=== PATIENT | female | born 1940 | race Caucasian/White ===

== ENCOUNTER 2017-01-14 10:25 | Outpatient (CLI) | payer BC, MEDICARE ==
--- NOTE | 2017-01-14 12:19 | RAD ---
CHEST PA AND LATERAL: HISTORY: A 76-year-old female with a history of dyspnea. COMPARISON: 01/17/2015 FINDINGS: Heart size is normal. Lungs are clear. No pneumonia, edema, or pleural effusion. Atherosclerosis of the aorta. Mild stable biapical pleural thickening. IMPRESSION: 1. Mild stable chronic changes. 2. Atherosclerosis of the aorta with some ectasia. 3. No acute intrathoracic disease. POS: [facility]
== END 2017-01-14 10:26 | disposition home or self-care (01) ==
LOC: RAD 10:25
PROVIDERS: ATTEND Internal Medicine Pulmonary Disease
DX: R06.00 Dyspnea, unspecified (principal); I70.0 Atherosclerosis of aorta; I77.819 Aortic ectasia, unspecified site
CPT/HCPCS: 71020

== ENCOUNTER 2017-04-21 17:30 | Emergency (ER) | payer MEDICARE, BC | END 2017-04-21 20:17 | disposition home or self-care (01) | LOC: ERS 17:30 | DX: J06.9 Acute upper respiratory infection, unspecified (principal); J30.9 Allergic rhinitis, unspecified; M54.9 Dorsalgia, unspecified; E78.5 Hyperlipidemia, unspecified; I10 Essential (primary) hypertension; F32.9 Major depressive disorder, single episode, unspecified; M79.7 Fibromyalgia; Z79.899 Other long term (current) drug therapy | CPT/HCPCS: 99283 ==

== ENCOUNTER 2017-10-23 11:17 | Outpatient (CLI) | payer MEDICARE, BC | END 2017-10-23 11:18 | disposition home or self-care (01) | LOC: BICRAD 11:17 | PROVIDERS: ATTEND Specialist | DX: M25.561 Pain in right knee (principal); M17.11 Unilateral primary osteoarthritis, right knee ==

== ENCOUNTER 2018-01-29 08:45 | Inpatient (IN) | payer BC, MEDICARE ==
--- NOTE | 2018-01-29 14:24 | HP ---
HISTORY OF PRESENT ILLNESS: The patient is a 77-year-old female, who has long history of progressive degenerative arthritis of the right knee unresponsive to treatement including restriction of activities, antiinflammatory medications, and previous cortisone injections. It is now causing her to have an unsteady gait and fall. PAST MEDICAL HISTORY: The patient has had polio in the recent past. She does have early onset dementia. She has had previous left total knee replacement with good results. She has history of high cholesterol and hypertension. CURRENT MEDICATIONS: Include; 1. Fluoxetine. 2. Hydrochlorothiazide. 3. Simvastatin. 4. . 5. Tramadol. 6. Lyrica. 7. Diclofenac. 8. Namenda. 9. Mirtazapine. 10. Flexeril. 11. Rivastigmine. ALLERGIES: SHE HAS NO KNOWN ALLERGIES. THE PATIENT LIVES WITH HER FAMILY AND IS INDEPENDENT. NO LONGER DRIVES AND USES A WALKER CANE. FAMILY HISTORY: Otherwise, unremarkable. SOCIAL HISTORY: Otherwise, unremarkable. REVIEW OF SYSTEMS: Otherwise, unremarkable. PHYSICAL EXAMINATION: GENERAL: Healthy, elderly female. She appears to be alert. HEENT: Unremarkable. NECK: Supple. CHEST: Clear. HEART: Regular rate and rhythm. ABDOMEN: Soft and nontender. PELVIC: Deferred. RECTAL: Deferred. BREASTS: Deferred. EXTREMITIES: Pertinent findings of the right knee, there is slight puffiness. There is no fusion or effusion or erythema. There is normal alignment. There is tenderness over the medial joint line and the retropatellar area. There is crepitus with range of motion. Range of motion is 0 to 130 degrees. There is no instability. NEUROVASCULAR: Intact. There is right antalgic gait. Straight leg raising is negative. IMAGING DATA: X-rays in the right knee reveals diffuse degenerative changes in all compartments and [id number] collapse at the patellofemoral joint. IMPRESSION: 1. Degenerative arthritis, right knee. 2. Status post left total knee replacement. 3. Early onset dementia. PLAN: Right total knee replacement. The nature of the surgery and length of recovery and potential complications such as infection, loss of motion, incomplete relief, thrombolic phenomenon, neurovascular injury, possible transfusion and need for revision have been discussed in detail with the patient and the family. Job ID: [id number]
[2018-02-02] MEDS ORDERED: Fentanyl 100 MCG/2 ML VIAL ONE ×2 (06:19→06:50)
[2018-02-02] MEDS ORDERED: Midazolam HCl 2 mg/2 ml Vial ONE (06:19)
[2018-02-02] MEDS ORDERED: Lidocaine 1% (PF) 30 ML VIAL ONE (06:19)
[2018-02-02] MEDS ORDERED: CEFAZOLIN 2 GM/50 ML BAG ONE (06:32)
[2018-02-02] MEDS ORDERED: Tranexamic Acid 1,000 MG/10 ML VIAL ONE ×2 (06:32→08:57)
[2018-02-02] MEDS ORDERED: Sodium Chloride 0.9% 100 ML ONE (06:32)
[2018-02-02] MEDS ORDERED: Morphine PF 1 MG/ML SYR ONE (06:54)
[2018-02-02] MEDS ORDERED: Bupivacaine 0.75% W/DEXTROSE 8.25% 2 ML AMP ONE (07:12)
[2018-02-02] MEDS ORDERED: Promethazine HCl 25 MG SUPP PR PRN (07:39)
[2018-02-02] MEDS ORDERED: Promethazine HCl 25 MG/ML VIAL IM PRN (07:39)
[2018-02-02] MEDS ORDERED: Eucerin (Mineral Oil/Petrolatum,White) 30 gm Jar TOP PRN (07:39)
[2018-02-02] MEDS ORDERED: Naloxone HCl 0.4 mg/ml Vial IVP PRN ×2 (07:39)
[2018-02-02] MEDS ORDERED: diphenhydrAMINE 50 MG/ML VIAL IVP PRN (07:39)
[2018-02-02] MEDS ORDERED: Naloxone HCl 0.4 mg/ml Vial IV PRN (07:39)
[2018-02-02] MEDS ORDERED: Ondansetron HCl/PF 4 MG/2 ML Vial IVP PRN (07:39)
[2018-02-02] MEDS ORDERED: Acetaminophen 1,000 MG in Premix Bag 1 BAG IVPB PRN (07:44)
[2018-02-02] MEDS ORDERED: Acetaminophen 500 MG TAB PO PRN (07:44)
[2018-02-02] MEDS ORDERED: Communication Order-Pharmacy FS SCH (07:45)
[2018-02-02] MEDS ORDERED: Bupivacaine HCl 0.5%/Epinephrine 1:200,000/PF 30 ml Vial ONE (08:11)
[2018-02-02] MEDS ORDERED: Lidocaine 1% w/Epinephrine 1:200K 30 ML VIAL ONE (08:11)
[2018-02-02] MEDS ORDERED: Tranexamic Acid 1,000 MG in Sodium Chloride 0.9% 100 ML IVPB SCH ×2 (09:15→10:38)
[2018-02-02] MEDS ORDERED: Ketorolac Tromethamine 30 MG/ML VIAL ONE (09:27)
[2018-02-02 10:09] VITALS: BMI 28.5
--- NOTE | 2018-02-02 10:10 | RAD ---
TWO VIEWS RIGHT KNEE: History: Right knee arthroplasty. FINDINGS: Two views of the right knee shows the patient to be status post right knee arthroplasty without perih ardware lucency with fracture. Air in the soft tissues and joint are from recent surgery. IMPRESSION: Status post right knee arthroplasty without evidence of complication. POS: [facility]
[2018-02-02] MEDS: Ketorolac Tromethamine 30 MG/ML VIAL IVP SCH ×3 (10:37→20:45)
[2018-02-02] MEDS ORDERED: CEFAZOLIN/Water 2 GM/20 ML SYRINGE SLOW IVP SCH (10:38)
[2018-02-02] MEDS ORDERED: Acetaminophen 325 MG TAB PO PRN (10:38)
[2018-02-02] MEDS ORDERED: Ondansetron PF 4 MG/2 ML Vial IVP PRN (10:38)
[2018-02-02] MEDS: Sodium Chloride 0.9% 1,000 ML IV SCH ×2 (13:24→21:08)
[2018-02-02] MEDS: Aspirin 81 mg Enteric Coated Tablet PO SCH ×2 (13:24→21:07)
[2018-02-02] MEDS ORDERED: ePHEDrine/0.9% NaCl/PF SYRINGE 50 mg/10 ml ONE (14:00)
[2018-02-02] MEDS ORDERED: PROPOFOL 200 MG/20 ML VIAL ONE (14:00)
[2018-02-02] MEDS ORDERED: PHENYLEPHRINE-NS 100 MCG/ML 10 ML SYRINGE ONE (14:00)
[2018-02-02] MEDS: CEFAZOLIN 2 GM/50 ML-DEXTROSE 2 GM in Premix Bag 1 BAG IVPB SCH (14:50)
[2018-02-02] MEDS: Ondansetron PF 4 MG/2 ML Vial IVP PRN (15:41)
[2018-02-02] MEDS ORDERED: Vancomycin HCl 1 GM in Premix Bag 1 BAG IVPB SCH (18:00)
[2018-02-02] MEDS: diphenhydrAMINE 25 MG CAP PO PRN (18:55)
[2018-02-02] MEDS: Calcium Citrate 950 MG TAB PO SCH (21:07)
[2018-02-02] MEDS: Pregabalin 50 MG CAP PO SCH (21:07)
[2018-02-02] MEDS: Atorvastatin Calcium 10 MG TAB PO SCH (21:08)
[2018-02-02] MEDS ORDERED: traMADol HCl 50 MG TAB PO PRN (22:00)
[2018-02-02] MEDS ORDERED: Fentanyl 100 MCG/2 ML VIAL SLOW IVP PRN (22:00)
[2018-02-02] MEDS ORDERED: Zolpidem Tartrate 5 MG TAB PO PRN (22:00)
[2018-02-02] MEDS ORDERED: HYDROcodone/Acetaminophen 5/325 mg Tablet PO PRN (22:00)
[2018-02-03] MEDS: Ketorolac Tromethamine 30 MG/ML VIAL IVP SCH ×4 (00:51→20:39)
[2018-02-03] MEDS: CEFAZOLIN 2 GM/50 ML-DEXTROSE 2 GM in Premix Bag 1 BAG IVPB SCH (00:51)
[2018-02-03] MEDS: diphenhydrAMINE 25 MG CAP PO PRN (01:00)
[2018-02-03] MEDS: HYDROcodone/Acetaminophen 5/325 mg Tablet PO PRN ×5 (03:55→21:32)
[2018-02-03] MEDS: Sodium Chloride 0.9% 1,000 ML IV SCH ×2 (05:57→16:50)
--- NOTE | 2018-02-03 05:59 | CON ---
DATE OF CONSULTATION: 02/02/2018 CHIEF COMPLAINT: Status post right total knee replacement. I have been requested to monitor the patient's other multiple medical issues. HISTORY OF PRESENT ILLNESS: The patient is a 77-year-old female, who has been having severe right knee arthritic pain for quite sometime and was cleared for surgical procedure just 2 weeks ago. On the day of dictation, she just finished having right total knee replacement and currently is doing well. Initially, coming out from under the anesthesia, she had nausea and vomiting, and now she is complaining of itching all over, but other than that she is doing quite well. No chest pain. No shortness of breath. Vital signs have remained stable. PAST MEDICAL HISTORY: Significant for early onset dementia, osteoarthritis of the knees, hypertension, dyslipidemia, depression. PAST SURGICAL HISTORY: Patient's other surgery is left total knee replacement. ALLERGIES: SHE HAS NO KNOWN DRUG ALLERGIES. MEDICATIONS: Her medications on admission include; 1. Fluoxetine. 2. Hydrochlorothiazide. 3. Simvastatin. 4. Tramadol. 5. Lyrica. 6. Namenda 10 mg b.i.d. 7. Rivastigmine. 8. Mirtazapine. SOCIAL HISTORY: She is . Does not smoke or drink alcoholic beverages. REVIEW OF SYSTEMS: GENERAL: No fever, cough, malaise. HEENT: No sores in ear, nose, or throat. CHEST: Denies shortness of breath or dyspnea. CARDIOVASCULAR: Denies palpitations or chest pain. ABDOMEN/GI: Denies nausea, vomiting, or diarrhea prior to the surgical procedure, but since anesthesia she has had nausea and vomiting. : Denies blood in urine or stool. SKIN: Has diffuse erythematous rash that is very pruritic. MUSCULOSKELETAL: Status post left knee replacement, doing well, and just had right total knee replacement on the day of consultation, also doing well. NEUROLOGIC: Suffers from significant short-term memory loss and dementia, but is very pleasant. Examination: WD,WN cauc Female,, NAD, Alert HEENT: NC, AT, PERRL, EOMI, TM's/ Nares/Pharynx - clear Neck: Supple -no mass CHEST: CTA HEART: RRR , no murmur Breast/ : deferred ABD: soft , NT, No LSM EXT: right LE in post -op wrap , NT left , UE w/o CCE, Nl ROM SKIN: no acute lesions Neuro: CN intact, sensory intact, MS sig for significant short term memory loss ASSESSMENT: 1. Osteoarthritis of the knees, status post right total knee replacement on the day of consultation. 2. Left total knee replacement in the past. 3. Hypertension. 4. Dyslipidemia. 5. Dementia. PLAN: Will be to monitor patient's medications and serially re-evaluate her if she remains in the hospital, pain management as per Anesthesia, and we will try to avoid any more medication that makes her itch. Job ID: [id number] MTDD
[2018-02-03] MEDS: Rivastigmine 4.6mg/24 Hour PATCH TD SCH (07:19)
[2018-02-03 07:29] LABS: Hemoglobin 11.6 g/dL (12.0-16.0); Mean Corpuscular HGB CONC 33.4 g/dL (32.0-36.0); Mean Corpuscular Hemoglobin 32.9 pg (27.0-31.0); Mean Corpuscular Volume 98.7 fL (78.0-98.0); Mean Platelet Volume 10.9 fL (7.4-10.4); Platelet Count 95 thou/uL (130-400); RBC Distribution Width 12.4 % (11.5-14.5); Red Blood Cell (RBC) Count 3.51 mill/uL (4.20-5.40); White Blood Cell (WBC) Count 7.1 thou/uL (4.8-10.8)
[2018-02-03] MEDS: Ondansetron PF 4 MG/2 ML Vial IVP PRN (07:35)
[2018-02-03] MEDS: Pregabalin 50 MG CAP PO SCH ×2 (07:41→20:45)
[2018-02-03] MEDS: Multivitamin W/ Minerals 1 TAB PO SCH (08:22)
[2018-02-03] MEDS: Calcium Citrate 950 MG TAB PO SCH ×2 (08:22→21:31)
[2018-02-03] MEDS: Cyanocobalamin (Vitamin B-12) 1,000 MCG TAB PO SCH (08:23)
[2018-02-03] MEDS: FLUoxetine HCl 20 MG CAP PO SCH (08:24)
[2018-02-03] MEDS: Ferrous Gluconate 324 MG TAB PO SCH ×2 (08:24→20:45)
[2018-02-03] MEDS: Aspirin 81 mg Enteric Coated Tablet PO SCH ×2 (08:25→20:45)
[2018-02-03] MEDS: Mirtazapine 15 MG TAB PO SCH (08:25)
[2018-02-03] MEDS: Senokot S 8.6-50 MG TAB PO SCH ×2 (08:26→20:45)
[2018-02-03] MEDS ORDERED: Diphenoxylate HCl/Atropine Tablet PO PRN (09:45)
[2018-02-03] MEDS: traMADol HCl 50 MG TAB PO PRN ×2 (11:26→18:25)
[2018-02-03 12:00] LABS: Bilirubin Negative (Negative); Blood, Urine Negative (Negative); Clarity CLEAR (Clear); Glucose, Urine (Dipstick) Negative (Negative); Leukocyte Small (Negative); Nitrite Negative (Negative); Protein, Urine (Dipstick) 30 mg/dL (Neg-Trace); Specific Gravity, Urine 1.029 (1.002-1.036); Urobilinogen 0.2 mg/dL (0.2-1.0); pH, Urine 5.5 (5.0-9.0)
[2018-02-03 12:07] LABS: Bacteria/HPF None Seen HPF (None Seen); Pathc Cast-AUWi Flag 1.45 (0-2.49); Squamous Epithelial 0-3 HPF (0-3)
[2018-02-03 12:14] LABS: Hyaline Casts/LPF 0-3 HYALINE CAST LPF (0-3 Hyaline)
[2018-02-03] MEDS: Atorvastatin Calcium 10 MG TAB PO SCH (20:45)
[2018-02-04] MEDS: Ketorolac Tromethamine 30 MG/ML VIAL IVP SCH ×3 (01:04→15:54)
[2018-02-04] MEDS: Sodium Chloride 0.9% 1,000 ML IV SCH ×2 (02:08→11:30)
[2018-02-04] MEDS: HYDROcodone/Acetaminophen 5/325 mg Tablet PO PRN ×3 (04:55→15:32)
[2018-02-04 06:31] LABS: Cardiac Risk 2.1 (Less than 4.5)
[2018-02-04] MEDS: Senokot S 8.6-50 MG TAB PO SCH (09:25)
[2018-02-04] MEDS: Mirtazapine 15 MG TAB PO SCH (09:25)
[2018-02-04] MEDS: Multivitamin W/ Minerals 1 TAB PO SCH (09:26)
[2018-02-04] MEDS: Cyanocobalamin (Vitamin B-12) 1,000 MCG TAB PO SCH (09:26)
[2018-02-04] MEDS: Aspirin 81 mg Enteric Coated Tablet PO SCH (09:26)
[2018-02-04] MEDS: Pregabalin 50 MG CAP PO SCH (09:27)
[2018-02-04] MEDS: Calcium Citrate 950 MG TAB PO SCH (09:28)
[2018-02-04] MEDS: Ferrous Gluconate 324 MG TAB PO SCH (09:28)
[2018-02-04] MEDS: FLUoxetine HCl 20 MG CAP PO SCH (09:28)
[2018-02-04] MEDS: Rivastigmine 4.6mg/24 Hour PATCH TD SCH (09:48)
[2018-02-04] MEDS ORDERED: Sulfameth/Trimethoprim DS 800-160mg TAB PO SCH ×2 (10:15→21:00)
[2018-02-04 12:02] VITALS: BP 158/73; TEMP 97.4
[2018-02-04] MEDS ORDERED: DICLOFENAC GEL 1% TOP SCH (13:00)
--- NOTE | 2018-02-04 17:13 | OP ---
DATE OF PROCEDURE: 02/02/2018 PREOPERATIVE DIAGNOSIS: End-stage degenerative tricompartmental osteoarthritis, right knee. POSTOPERATIVE DIAGNOSIS: End-stage degenerative tricompartmental osteoarthritis , right knee. PROCEDURE PERFORMED: Posterior cruciate sparing computer-assisted navigated right knee total knee arthroplasty. SURGEON: Vargas Castro MD MALT SPECIFICATIONS CONTROL ASSISTANT: Danie Carlos PA-C ANESTHESIA: Spinal augmented with TIVA and monitored anesthesia care. COMPONENTS USED: [employer] Triathlon size 3 primary cruciate sparing femoral component, cemented primary femoral component with a size 3 primary cemented cruciate sparing tibial component, 9 mm polyethylene fixed bearing insert, and 827 patella button. TOURNIQUET TIME: 66 minutes at 250 mmHg. ESTIMATED BLOOD LOSS: Less than 20. FINDINGS: End-stage severe degenerative tricompartmental disease, kktu-tr-ikyl arthrosis, periarticular osteophyte formation, large serous effusion, and hypertrophic synovium with significant patellofemoral degenerative changes with subcortical excoriation. INPUT: 1 L of LR. OUTPUT: 400 mL of clear yellow urine. DRAINS: None. SPECIMENS: None. COMPLICATION: None. COUNTS: Correct. INDICATIONS FOR SURGERY: Lee is a 77-year-old white female, who has had progressive right knee pain when standing and walking for the last 5 to 7 years. She has failed conservative management and elected to proceed with total knee arthroplasty for definitive treatment of her pain. PROCEDURE IN DETAIL: After informed consent was obtained in the preoperative holding area, the patient was taken to the operative suite where general anesthesia was induced. Once adequate level of general anesthesia was obtained, the patient was positioned and a well-padded tourniquet was placed around the right proximal thigh. The right lower extremity was then prepped and draped in the usual sterile fashion. Prior to exsanguination, a time-out was called and all members of the surgical team agreed upon site, surgeon, and patient. The extremity was then exsanguinated and the tourniquet was raised. A midline longitudinal incision was then made directly over the patella extending 2 fingerbreadths above the superior pole of the patella and 2 fingerbreadths inferior to the inferior patellar pole of the patella. Deeper subcutaneous layers were dissected sharply and local bleeding was controlled with Bovie electrocautery. A quad tendon longitudinal split was then made sharply and a median parapatellar arthrotomy was carried out both sharp and with Bovie electrocautery, carried down to 1 fingerbreadth medial to the tibial tubercle. The knee was then placed into flexion and the patella was everted nicely, and a copious fat pad ectomy was performed, allowing for greater exposure of the tibia. The computer-assisted distal femoral fiducial was then placed and pinned firmly, and the distal femoral cutting guide was pinned firmly into place. The oscillating saw was then used to remove the appropriate amount of bone. The 4-in-1 cutting block was then placed on the distal femur and the oscillating saw was used to remove the appropriate amount of bone off the anterior, posterior, and chamfer cuts. After completion of bone cuts, the anterior cruciate ligament was resected sharply and the posterior cruciate ligament retractor was placed and the tibia was subluxed for better exposure. Partial meniscectomies were carried out, and the tibial computer-assisted fiducial was pinned, and the cutting guide was placed. Oscillating saw was then used to remove the bone, with Hohmann retractors used to take care and protect the collateral ligaments. After the tibial resection was performed, a laminar banking officer was placed in between the freshened bone cuts. The knee placed at 90 degrees and further bilateral meniscectomies were carried out, and the curved osteotome and curettage were used to remove any excess bone spurs in the posterior compartment. The trial femoral component, tibial baseplate were placed with the appropriate polyethylene trial insert with an appropriate polyethylene spacer and patellar button. The knee was taken through full range of motion with flexion and extension from 0 to 90 degrees and patellar broach squarely in the trochlea without any squinting or subluxation noted. The knee was also stable to varus and valgus stressing at 0, 15, 45, and 90 degrees of flexion. The drawer was negative. All trial components were then removed and the keel punch was used to provide the appropriate defect in the tibia with a mallet. The freshened bone cuts were copiously irrigated with pulsatile lavage of about 1.5 L to remove all excess debris. The freshened bone cuts were then dried with suction and lap sponge. The knee was placed in flexion and retractors were placed to provide access to all bone cuts. Tobramycin-impregnated methyl methacrylate cement was then placed on the freshened bone cuts and implants which were malleted firmly into place. Curettage and [place] elevators were used to remove any excess bone cement. The knee was placed into full extension and the patellar button was placed under compression, and the cement was allowed to cure. Once completed, the components were again taken through full range of motion and copious irrigation of the knee was carried out with another liter of normal saline. All components were inspected fully with full range of motion and varus and valgus stressing. There was no laxity noted and full extension was observed clinically. Primary closure was accomplished with #2 interrupted Vicryl stitch of the arthrotomy defect. This was oversewn with a #2 running Quill barbed stitch. The subcutaneous layer was then closed with a running 0 barbed Monocryl stitch and skin closure accomplished with a running subcuticular 3-0 Monocryl barbed Quill stitch and augmented with cement on the skin. Tourniquet was lowered. Good spontaneous return of distal pulses was noted clinically and a sterile dressing was applied to the incision. The procedure was terminated without any complications. The patient was awakened in the operative suite and taken to the recovery room in stable condition. Job ID: [id number] [facility]
== END 2018-02-04 16:28 | disposition home or self-care (01) | DRG 470 ==
LOC: SJJU 02-02 05:26
PROVIDERS: ADMIT Orthopaedic Surgery; ATTEND Orthopaedic Surgery
PROC: 0SRC0J9 Replacement of Right Knee Joint with Synthetic Substitute, Cemented, Open Approach (ICD-10-PCS; principal; 2018-02-02)
DX: M17.11 Unilateral primary osteoarthritis, right knee (principal); F03.90 Unspecified dementia, unspecified severity, without behavioral disturbance, psychotic disturbance, mood disturbance, and anxiety; Z86.12 Personal history of poliomyelitis; E78.5 Hyperlipidemia, unspecified; F32.9 Major depressive disorder, single episode, unspecified; Z79.899 Other long term (current) drug therapy; Z96.652 Presence of left artificial knee joint
CPT/HCPCS: 36415; 80061; 81001; 85027; 87086; C1713; C1776; G8978-GP-CK; G8978-GP-CM; G8979-GP-CI; G8979-GP-CJ; J0670; J1885; J2001; J2250; J2274; J2405; J2704; J3010; J3370; J3490; J7050

== ENCOUNTER 2018-01-29 08:51 | Outpatient (CLI) | payer BC, MEDICARE | END 2018-01-29 08:52 | disposition home or self-care (01) | LOC: LABBT 08:51 | PROVIDERS: ATTEND Orthopaedic Surgery | DX: Z01.818 Encounter for other preprocedural examination (principal); M17.11 Unilateral primary osteoarthritis, right knee | CPT/HCPCS: 86850; 86900; 86901; 87081 ==

== ENCOUNTER 2018-04-09 08:14 | Observation (INO) | payer BC, MEDICARE ==
--- NOTE | 2018-04-09 08:43 | CT ---
CT BRAIN WITHOUT CONTRAST: Date: 04/09/18 HISTORY: Level II stroke. FINDINGS: Comparison made with exam of 02/15/15. Changes of cortical atrophy and chronic small vessel ischemic disease are again seen. No evidence of acute infarct, hemorrhage, midline shift, or abnormal extra-axial fluid collections are noted. The ve ntricular size is stable and the basilar cisterns are patent. The bony calvarium is intact. The visua lized paranasal sinuses and mastoid air cells are well aerated. IMPRESSION: No CT evidence of acute intracranial process. Discussed over the phone with ER physician, Dr. Doug Chavez, at 0839 hours. CODE CR.
[2018-04-09 08:44] LABS: #Eosinphils 0.4 thou/uL (0.0-0.7); #Lymphocytes 0.9 thou/uL (1.20-3.40); #Monocytes 0.7 thou/uL (0.11-0.59); #Neutrophils 5.1 thou/uL (1.40-6.50); %Basophils 0.5 % (0.0-1.0); %Eosinophils 5.9 % (0.0-10.0); %Lymphocytes 12.9 % (21.0-51.0); %Monocytes 9.9 % (0.0-10.0); %Neutrophils 70.7 % (42.0-75.0); Hemoglobin 13.2 g/dL (12.0-16.0); Mean Corpuscular HGB CONC 31.3 g/dL (32.0-36.0); Mean Corpuscular Hemoglobin 30.9 pg (27.0-31.0); Mean Corpuscular Volume 98.8 fL (78.0-98.0); Mean Platelet Volume 10.6 fL (7.4-10.4); Platelet Count 117 thou/uL (130-400); RBC Distribution Width 12.1 % (11.5-14.5); Red Blood Cell (RBC) Count 4.25 mill/uL (4.20-5.40); White Blood Cell (WBC) Count 7.3 thou/uL (4.8-10.8)
[2018-04-09 09:03] LABS: ALT (SGPT) 43 U/L (8-55); AST (SGOT) 37 U/L (5-34); Albumin 4.1 g/dL (3.4-4.8); Alkaline Phosphatase 138 U/L (40-150); Anion Gap 14 mmol/L (10-20); BUN (Urea Nitrogen) 25 mg/dL (9.8-20.1); Bilirubin, Total 0.4 mg/dL (0.2-1.2); CK (CPK) 51 U/L (29-168); Calc. Creatinine Clearance 0 mL/min (70-130); Calcium 9.5 mg/dL (7.8-10.44); Carbon Dioxide 25 mmol/L (23-31); Chloride 104 mmol/L (98-107); Estimated GFR-MDRD 34; Glucose 95 mg/dL (83-110); Potassium 3.9 mmol/L (3.5-5.1); Protein, Total 7.1 g/dL (6.0-8.3); Sodium 139 mmol/L (136-145)
--- NOTE | 2018-04-09 09:36 | RAD ---
CHEST ONE VIEW: History: Altered mental status. Confusion. Comparison: 01-17-15 FINDINGS: Monitor leads overlie the chest. Heart size is within normal limits. Minimal stable chronic changes. IMPRESSION: Minimal bilateral stable chronic changes. No acute intrathoracic disease. Old granulomatous disease. Atherosclerosis of the aorta. POS: [facility]
[2018-04-09 09:41] LABS: Bilirubin Negative (Negative); Blood, Urine Negative (Negative); Clarity CLEAR (Clear); Glucose, Urine (Dipstick) Negative (Negative); Leukocyte Negative (Negative); Nitrite Negative (Negative); Protein, Urine (Dipstick) Trace mg/dL (Neg-Trace); Specific Gravity, Urine 1.017 (1.002-1.036); Urobilinogen 0.2 mg/dL (0.2-1.0); pH, Urine 5.5 (5.0-9.0)
[2018-04-09] MEDS ORDERED: Aspirin Chewable 81 MG TAB ONE (10:24)
[2018-04-09 12:25] VITALS: BMI 27.6
[2018-04-09] MEDS: Sodium Chloride 0.9% 1,000 ML IV SCH (14:33)
--- NOTE | 2018-04-09 15:04 | MRI ---
MRI BRAIN WITHOUT CONTRAST: HISTORY: Altered mental status. FINDINGS: Comparison is made with the MRI of 05/29/2016 and correlation is made with the CT scan from the same d ate. No restricted diffusion is seen. Changes of chronic small-vessel ischemic disease in the periventric ular white matter are redemonstrated. No evidence of infarct, hemorrhage, midline shift, or abnormal extraaxial fluid collections is seen. The ventricular size is stable and the basilar cisterns paten t. There is mild mucosal disease in the paranasal sinuses. IMPRESSION: No evidence of acute intracranial process. POS: [facility]
[2018-04-09] MEDS: Guaifenesin DM 100-10/5 ML UDCUP PO PRN (20:51)
--- NOTE | 2018-04-10 06:47 | CON ---
DATE OF CONSULTATION: CONSULTING PHYSICIAN: Dr. Alexx Hogan. IMPRESSION: Probable heat-induced hypotensive episode resulting in transient confusion. PLAN: Avoid excessive heat. HISTORY OF PRESENT ILLNESS: Ms. Oates is a 77-year-old white female, who has a past history of hyperlipidemia and hypotension. She went into her hot tub alone to warm up and see if it would make her feel better. She had been sick for the last week with an upper respiratory infection. Her found her seemingly unconscious. She was slumped over and almost had her mouth underwater. She was dragged out of the hot tub and into the house. She started to regain consciousness, but was talking incoherently. This went on for about 5 minutes. He then went ahead and brought her into the bedroom, and later on the bed. He checked her vital signs at that point and she had a normal systolic pressure of 120 and a body temperature of 99.6. She within about 10 minutes was alert and conversant. She remembers sitting up at the bedside when she regained consciousness. There was no associated headache, nausea, vomiting, vertigo, chest pain, or shortness of breath. She had done this two times in the past. On one occasion, she got out of a hot tub and went and sat in her chair. She then became confused and did not recognize her for about 10 minutes. On another occasion, she got out of her bathtub and was in the bathroom at that time when she started talking in an incoherent manner, this again only lasted a few minutes. She apparently says always run a fairly low blood pressures. Since she has been in-house, her blood pressures run in the 90 /60s range. She had an MRI of the brain done, which showed some small-vessel ischemic changes, but otherwise no acute injury. Her lab work was all unremarkable as well. PAST MEDICAL HISTORY: Polio with some chronic pain, mild dementia. ALLERGIES: NONE. SOCIAL HISTORY: No tobacco or alcohol use. FAMILY HISTORY: Noncontributory. MEDICATIONS: Medication list was reviewed. REVIEW OF SYSTEMS: Ten-system review of systems at this point is only notable for her cough and upper respiratory symptoms. PHYSICAL EXAMINATION: VITAL SIGNS: Blood pressure 100/54, pulse 67, respirations 17, and saturations 95%. HEENT: Pupils equal and reactive. Conjunctivae are clear. Oropharynx is clear. NECK: Supple. No lymphadenopathy. EXTREMITIES: No cyanosis, clubbing, or edema. NEUROLOGIC: She is alert and oriented x3. Her speech is fluent and clear. Her exam is nonfocal. No abnormal movements were noted. IMAGING STUDIES: 1. EKG shows normal sinus rhythm. 2. MRI images were reviewed. SUMMARY: An elderly lady with relatively low blood pressure, who probably vasodilates due to the heat. This probably is resulting in secondary hypoperfusion and transient confusion. She seems to be back to her baseline. I do not see any other testing is necessary at this point. Job ID: [id number] MTDD
[2018-04-10] MEDS: Sodium Chloride 0.9% 1,000 ML IV SCH (08:13)
--- NOTE | 2018-04-10 09:28 | HP ---
CHIEF COMPLAINT: Vasovagal episode with altered mental status. HISTORY OF PRESENT ILLNESS: The patient is a 77-year-old female, who had been recently dealing with an upper respiratory illness. She was recently started on a Z-Haresh, went home and mistakenly took her nighttime medicine during the day. She felt that resulting day she had lower blood pressure, was sleepy and could barely keep herself awake. Her blood pressure was extremely low. This patient went to the hot tub to make herself warm up and feel better and was then found unconscious by her slumped over in the hot tub. It took her 5 to 10 minutes to come around on the living room floor, at which time, she remained confused for additional 5 to 10 minutes, not recognizing where she was or her was. He ended up bringing her to the emergency room. Her every tests returned normal, but due to her episode, she was put in overnight for further observation. PAST MEDICAL HISTORY: Significant for mild dementia, chronic pain, hypertension, and dyslipidemia. She actually has some polio in the past including musculoskeletal disorder, fibromyalgia and was termed small vessel disease. PAST SURGICAL HISTORY: Includes appendectomy, hysterectomy, orthopedic knee surgery, nerve block injections at L3, L4, and L5, and recently right knee surgery. PAST PSYCHIATRIC HISTORY: Includes depression and advancing dementia. SOCIAL HISTORY: Denies alcohol use. No smoking history. Lives alone at home with her . ALLERGIES: SHE HAS NO KNOWN DRUG ALLERGIES. REVIEW OF SYSTEMS: GENERAL: Denies any fever, chills, recently has had a lot of malaise, sleepiness. HEENT: Denies drainage from ears, eyes, nose, and throat. No recent sores. CHEST: Has a chronic cough, nonproductive, but denies continuous dyspnea. CARDIOVASCULAR: Denies palpitations or chest pain. GASTROINTESTINAL: Denies nausea, vomiting, or diarrhea. : Denies dysuria, blood in urine or stool. MUSCULOSKELETAL: Has chronic aches and pains in her back, lower extremities, and knees. No new areas of pain. SKIN: No new rashes or lesions. NEUROLOGIC: Has had altered mental status as reason for observation. Denies any paralysis, paresthesias, areas of anesthesia. HEMOLYTIC/LYMPH: No areas of bruising, swelling. MEDICATIONS: Her medications at the time of admission include; 1. Fluoxetine 20 mg a day. 2. Simvastatin 20 mg at bedtime. 3. Zorvolex 35 mg t.i.d. 4. Mirtazapine 30 mg at bedtime. 5. Rivastigmine patch 9.5 applied once a day. 6. Namenda XR 21 mg once a day. 7. Tramadol 50 mg two usually at bedtime. 8. Lyrica taken occasionally 150 daily. 9. Many vitamins including fish oil, calcium, vitamin C, and vitamin D. PHYSICAL EXAMINATION: VITAL SIGNS: Blood pressure 117/58, pulse 79, respirations 18, temperature 98, pain scale 0, and O2 sat 92% on room air. GENERAL: This is a well-developed, obese female, arousable, alert, amnestic as to the actual events. HEENT: Normocephalic, atraumatic. Pupils are equal, round, and reactive to light at 2 to 3 mm decreased reactivity bilaterally with arcus senilis bilaterally. TMs, nares, and pharynx are clear. NECK: Supple. Trachea midline. No bruits. No mass. CHEST: Clear to auscultation. BREASTS: Deferred. HEART: Regular rate and rhythm. No murmur. ABDOMEN: Soft and nontender without organomegaly. GENITOURINARY: Deferred. EXTREMITIES: Moves all extremities. Symmetrical muscular tone development in upper and lower extremities. Painful range of motion in the left shoulder, right knee. Mild heat in each joint. SKIN: No new rashes or lesions. NEUROLOGIC: Mental status has gone back to baseline, but she is amnestic as to the actual events that got her here. Cranial nerves intact. Gait and cerebellar function, normal. Sensory exam is intact. Some swallow dysfunction has been noted, such that she should use straws or cold liquids and her eyes water rather. Further evaluation that will be performed. LABORATORY DATA: Lab work on repeat admissions have been unremarkable. CT scans have been unremarkable. Followup MRI did not show any acute processes. ASSESSMENT: 1. Probable hypotensive episode with secondary hypoperfusion of the brain and amnesia of those events. 2. Dementia. 3. Adverse reaction to medication. 4. Possible swallow dysfunction as reason for chronic coughing. PLAN: Plan will be to observe further for any blood pressure alterations. Her medication will be significantly reduced for her blood pressure and further swallow evaluation will be performed while she is being observed for her blood pressure. She is anticipated to go home in her baseline state later today. Job ID: [id number]
[2018-04-10] MEDS ORDERED: FLUoxetine HCl 20 MG CAP PO SCH (10:00)
[2018-04-10] MEDS ORDERED: Rivastigmine 9.5mg/24 Hour PATCH TOP SCH (10:00)
[2018-04-10] MEDS ORDERED: Olmesartan 5 MG TAB PO SCH (10:00)
--- NOTE | 2018-04-10 14:47 | RAD ---
ESOPHAGRAM: Date: 04/10/18 HISTORY: Dysphagia. FINDINGS: Single column barium evaluation shows normal anatomic appearance of the esophagus. Some nonpropulsive tertiary type contractions were demonstrated. No evidence of obstruction to liquids. No significant hiatal hernia or reflux demonstrated fluoroscopically. A barium tablet showed approximately 5 minute holdup at the GE junction. IMPRESSION: 1. Very mild narrowing at the GE junction. 2. Mild presbyesophagus. POS: [facility]
--- NOTE | 2018-04-10 14:49 | RAD ---
MODIFIED BARIUM SWALLOW: Date: 04/10/18 HISTORY: Dysphagia. Feeding difficulties. FINDINGS/IMPRESSION: Exam was performed in conjunction with speech pathology and multiple consistencies. Video review is a vailable and demonstrates good bolus formation with some early spill of thinner consistencies. Deep p enetration was demonstrated with the thinner consistencies. No ryan aspiration visible. Small amount of pooling within the vallecula with good clearance upon secondary swallowing. The esophagus below the level of the hypopharynx was better evaluated on separately reported dedicate d esophagram. Please see separate detailed report from speech pathology regarding the modified barium swallow. POS: [facility]
[2018-04-10] MEDS ORDERED: ZORVOLEX PO SCH (15:00)
[2018-04-10 15:32] VITALS: TEMP 97.6
[2018-04-10] MEDS: Guaifenesin DM 100-10/5 ML UDCUP PO PRN (17:21)
[2018-04-10 17:59] VITALS: BP 137/73
[2018-04-11] MEDS ORDERED: FLUoxetine HCl 20 MG CAP PO SCH (09:00)
[2018-04-11] MEDS ORDERED: Olmesartan 5 MG TAB PO SCH (09:00)
[2018-04-11] MEDS ORDERED: Rivastigmine 9.5mg/24 Hour PATCH TOP SCH (09:00)
== END 2018-04-10 20:05 | disposition home or self-care (01) ==
LOC: ERS 08:14 → 2SE 11:33
PROVIDERS: ADMIT Specialist; ATTEND Specialist
DX: R55 Syncope and collapse (principal); I10 Essential (primary) hypertension; E78.5 Hyperlipidemia, unspecified; F03.90 Unspecified dementia, unspecified severity, without behavioral disturbance, psychotic disturbance, mood disturbance, and anxiety; M79.7 Fibromyalgia; F32.9 Major depressive disorder, single episode, unspecified; Z90.49 Acquired absence of other specified parts of digestive tract; Z90.710 Acquired absence of both cervix and uterus; Z86.12 Personal history of poliomyelitis; Z79.1 Long term (current) use of non-steroidal anti-inflammatories (NSAID); Z79.891 Long term (current) use of opiate analgesic; Z79.899 Other long term (current) drug therapy; Z98.890 Other specified postprocedural states
CPT/HCPCS: 36416; 70450; 70551; 71045; 74220; 74230; 80053; 81003; 82550; 84484; 85025; 93005; 96360; 96361; G0378

== ENCOUNTER 2018-06-29 10:08 | Outpatient (CLI) | payer BC, MEDICARE ==
--- NOTE | 2018-06-29 10:37 | RAD ---
EXAM: Chest 2 views: HISTORY: Cough COMPARISON: 04/09/2018 FINDINGS: Heart size:Within normal limits. Lungs:Clear of acute process. Atherosclerotic changes of the aorta. No confluent pneumonia, overt edema, pleural effusion, pneumothorax, or other significant acute proce ss. IMPRESSION: Stable exam. Atherosclerosis of the aorta. No acute intrathoracic disease.
== END 2018-06-29 10:09 | disposition home or self-care (01) ==
LOC: BICRAD 10:08
PROVIDERS: ATTEND Specialist
DX: R05 Cough (principal); I70.0 Atherosclerosis of aorta
CPT/HCPCS: 71046

== ENCOUNTER 2019-04-22 09:21 | Outpatient (CLI) | payer MEDICARE ==
--- NOTE | 2019-04-22 10:03 | RAD ---
2 view chest: [04/22/2019] Comparison:06/29/2018 HISTORY: Chest pain when breathing FINDINGS: Mild stable increased linear interstitial density. No pneumothorax, pleural fluid, focal co nsolidation, or alveolar edema. There is multilevel thoracic spine disc space narrowing and anterior osteophyte formation. IMPRESSION: Chronic interstitial prominence with no focal consolidation or alveolar edema.
--- NOTE | 2019-04-22 11:55 | RAD ---
PA CHEST AND RIGHT RIBS: Date: 04/22/2019 HISTORY: Chest pain on breathing, right anterior rib pain. FINDINGS: Chronic appearing lung changes are seen. No pneumothorax or pleural effusion. No fractures are identi fied. No lytic or blastic bony change. IMPRESSION: Negative right ribs. POS: [facility]
== END 2019-04-22 09:22 | disposition home or self-care (01) ==
LOC: BICRAD 09:21
PROVIDERS: ATTEND Specialist
DX: R07.81 Pleurodynia (principal); R05 Cough
CPT/HCPCS: 36415; 71046; 80048

== ENCOUNTER 2019-04-28 12:53 | Outpatient (CLI) | payer MEDICARE, OTHER ==
[2019-04-28] MEDS ORDERED: Magnevist 469MG/ML 20 ML VIAL ONE (14:30)
--- NOTE | 2019-04-28 14:51 | MRI ---
MRI BRAIN WITH AND WITHOUT CONTRAST: DATE: 04/28/2019. HISTORY: A 78-year-old female with dysphagia and memory loss. COMPARISON: 04/09/2018. TECHNIQUE: Multiple sequences obtained in axial, sagittal, and coronal planes; pre and post IV injection of gado linium-based contrast agent: 12 mL MultiHance. FINDINGS: In the left middle frontal gyrus, there is a new small, approximately 0.7 cm focus of very hypointens e signal on T2WI and FLAIR, signal that is isointense to bedolla matter on T1WI, exhibiting magnetic lance ceptibility artifact, and surrounded by a thin halo of T2 hyperintensity which could either be gliosi s or mild edema. This new lesion appears to be a small focus of hemorrhage, either chronic (hemoside rin) or acute (deoxyhemoglobin). The other possibility would be a focal calcification. Again noted are the extensive patchy multifocal T2 hyperintensities throughout the subcortical, deep, and periventricular white matter, and in the zoie, consistent with moderate-severe chronic ischemic white matter changes due to microvascular atherosclerosis. Ventricles are normal in size and configu ration. No mass effect, midline shift, extraaxial fluid collection, abnormal intraaxial enhancement, mass, or extraaxial fluid collection. There is no restricted diffusion. IMPRESSION: 1. Small intraaxial lesion in the left upper frontal lobe. It is uncertain whether this represents a small focus of chronic hemorrhage (that occurred sometime after the previous MRI of 04/09/2018), smal l focus of acute hemorrhage, or new small intraaxial calcification. If it does represent a hemorrhag e, one possible etiology is cerebral amyloid angiopathy (although there are no similar additional foc i of remote hemorrhages elsewhere to support this). 2. Moderate-severe chronic ischemic white matter changes. 3. No intracranial mass effect or neoplasm. 4. Recommend noncontrast CT of the brain to further characterize the small left frontal lesion. CODE T BRANDEE Sanz POS: OCHOA
== END 2019-04-28 12:54 | disposition home or self-care (01) ==
LOC: BICMRI 12:53
PROVIDERS: ATTEND Specialist
DX: R13.10 Dysphagia, unspecified (principal); G93.9 Disorder of brain, unspecified; I67.82 Cerebral ischemia
CPT/HCPCS: 70553; A9579

== ENCOUNTER 2019-05-04 09:00 | Outpatient (CLI) | payer MEDICARE, OTHER ==
--- NOTE | 2019-05-04 09:39 | RAD ---
EXAM: CHEST TWO VIEWS 05/04/2019 9:36 AM HISTORY: Cough COMPARISON: April 22, 2019 FINDINGS: Lungs: Chronic lung changes are stable. No acute airspace opacity is demonstrated. Heart: Normal in size and contour. Pulmonary Vessels: Normal. Costophrenic Angles: Clear. Pneumothorax: None. Osseous Structures: Intact. Additional Findings: None. IMPRESSION: No significant acute intrathoracic disease.
== END 2019-05-04 09:01 | disposition home or self-care (01) ==
LOC: BICRAD 09:00
PROVIDERS: ATTEND Specialist
DX: R05 Cough (principal)
CPT/HCPCS: 71046

== ENCOUNTER 2019-06-16 08:34 | Observation (INO) | payer MEDICARE ==
[2019-06-16 09:05] LABS: #Eosinphils 0.1 thou/uL (0.0-0.7); #Monocytes 0.7 thou/uL (0.11-0.59); #Neutrophils 8.5 thou/uL (1.40-6.50); %Basophils 0.1 % (0.0-1.0); %Eosinophils 0.5 % (0.0-10.0); %Lymphocytes 9.5 % (21.0-51.0); %Monocytes 6.7 % (0.0-10.0); %Neutrophils 83.2 % (42.0-75.0); Hemoglobin 13.8 g/dL (12.0-16.0); Mean Corpuscular HGB CONC 33.4 g/dL (32.0-36.0); Mean Corpuscular Hemoglobin 29.8 pg (27.0-31.0); Mean Corpuscular Volume 89.3 fL (78.0-98.0); Mean Platelet Volume 8.9 fL (7.4-10.4); Platelet Count 209 thou/uL (130-400); RBC Distribution Width 13.8 % (11.5-14.5); Red Blood Cell (RBC) Count 4.62 mill/uL (4.20-5.40); White Blood Cell (WBC) Count 10.2 thou/uL (4.8-10.8)
[2019-06-16 09:28] LABS: ALT (SGPT) 20 U/L (8-55); AST (SGOT) 29 U/L (5-34); Albumin 4.2 g/dL (3.4-4.8); Alkaline Phosphatase 100 U/L (40-110); Anion Gap 15 mmol/L (10-20); BUN (Urea Nitrogen) 11 mg/dL (9.8-20.1); Bilirubin, Total 0.4 mg/dL (0.2-1.2); Calc. Creatinine Clearance 0 mL/min (70-130); Calcium 9.8 mg/dL (7.8-10.44); Carbon Dioxide 28 mmol/L (23-31); Chloride 101 mmol/L (98-107); Estimated GFR-MDRD 73; Globulin 3.5 g/dL (2.4-3.5); Glucose 113 mg/dL (83-110); Lipase 5 U/L (8-78); Protein, Total 7.7 g/dL (6.0-8.3); Sodium 141 mmol/L (136-145)
[2019-06-16 09:31] LABS: Potassium 2.8 mmol/L (3.5-5.1)
[2019-06-16] MEDS ORDERED: D5 1/2 NS w/20 mEq KCL 1,000 ML IV SCH (09:45)
--- NOTE | 2019-06-16 10:44 | ULT ---
GALLBLADDER ULTRASOUND: Date: 06/16/2019 HISTORY: Right upper quadrant pain. FINDINGS: The liver and visualized portions of the pancreas are normal. The common duct measures 8.0 mm in diam eter. There is a shadowing gallstone within the gallbladder with gallbladder wall measuring 3.0 mm in thickness. There is edema in the wall of the gallbladder. A mass-like structure measuring 3.0 x 1.7 x 1.3 cm is seen attached to the wall of the gallbladder. Multiple renal cysts are present, the largest measuring 9.0 cm. No free fluid is seen in Morison's po uch. IMPRESSION: 1. Cholelithiasis with gallbladder wall edema. The possibility of acute cholecystitis should be cons idered. 2. Probable gallbladder mass. 3. Renal cysts. Surgical consultation is recommended. POS: JAVIER
[2019-06-16 11:41] LABS: INR-International Normal Ratio 0.9; PTT 26.9 SEC (22.9-36.1); Prothrombin Time 12.3 SEC (12.0-14.7)
[2019-06-16] MEDS ORDERED: cefOXitin Sodium/Dextrose,Iso 2 GM in Premix Bag 1 BAG IVPB SCH (11:45)
[2019-06-16] MEDS ORDERED: Lidocaine 1% w/Epinephrine 1:100K 20 ML VIAL ONE (11:58)
[2019-06-16] MEDS ORDERED: Bupivacaine 0.25% HCL 30 ML VIAL ONE (11:58)
[2019-06-16] MEDS ORDERED: EPINEPHrine 1 MG/ML AMP ONE (11:58)
--- NOTE | 2019-06-16 11:59 | HP ---
HISTORY OF PRESENT ILLNESS: Ms. Oates is a 78-year-old woman with a history of chronic dysphagia and chronic diarrhea associated with over 20-pound weight loss over the last one year. The patient presented to the emergency department today reporting an insidious onset epigastric to right upper quadrant abdominal pain, which radiated to her back. The pain started last night and was intermittent and progressively worse over overnight. She admits to some nausea, but no emesis. She has never experienced similar pain in the past. She denies any fevers or chills. She reports abdominal bloating over the last 2 weeks. PAST MEDICAL HISTORY: Pertinent for senile dementia of Alzheimer's type, essential hypertension and hyperlipidemia. PAST SURGICAL HISTORY: Pertinent for bilateral total knee arthroplasties, total abdominal hysterectomy, likely with bilateral salpingo-oophorectomy many years ago. Other pertinent surgical history includes appendectomy and multilevel lumbar spine nerve block injections. SOCIAL HISTORY: She is , lives at home with her . She used to smoke, although she has not done so for over 40 years now. She denies any ethanol or illicit drug abuse. FAMILY HISTORY: Noncontributory for this patient's age. PREHOSPITALIZATION MEDICATIONS: Include; 1. Fluoxetine 20 mg p.o. daily. 2. Simvastatin 20 mg p.o. daily. 3. Mirtazapine 30 mg p.o. daily. 4. Rivastigmine 9.5 mg p.o. daily. 5. Fish oil 1000 mg p.o. daily. 6. Calcium 750 mg p.o. daily. 7. Aspirin 81 mg p.o. daily. 8. Memantine 28 mg p.o. as well as multiple vitamins p.o. daily. ALLERGIES: THE PATIENT DENIES ANY KNOWN DRUG ALLERGIES. REVIEW OF SYSTEMS: Ten-point review of systems is essentially unremarkable except as stated in past medical history and chief complaint. PHYSICAL EXAMINATION: GENERAL: This reveals a 78-year-old normally developed woman, who is otherwise coherent and interactive and appears stated age. The patient is alert and oriented x3, appears to be in no acute distress at time of my evaluation. VITAL SIGNS: Currently include blood pressure 116/80, pulse is 80, respiratory rate is 17, temperature 97.8 degrees Fahrenheit, oxygen saturation is 98% on room air. HEENT: Reveal normocephalic and atraumatic. Pupils are equal, round, and reactive to light and accommodation. She has no scleral icterus present. There is no jugular venous distention noted. HEART: Reveals regular rate and rhythm. No murmurs or gallops auscultated. LUNGS: Clear to auscultation bilaterally. Her breathing is regular and unlabored. ABDOMEN: Soft, moderately distended with moderate epigastric right upper quadrant tenderness to palpation. Liver and spleen otherwise nonpalpable below costal margins. EXTREMITIES: Reveal 2+ radial and pedal pulses bilaterally. No ankle edema is present. NEUROLOGIC: Reveals no focal deficits present. LABORATORY FINDINGS: Include CBC with 10,200 white blood cells, hemoglobin hematocrit 13.8 and 41.3 respectively. Platelet count is 209,000. Metabolic profile; sodium 141, potassium is 2.8, chloride is 101, bicarb is 28, BUN 11, creatinine 0.77, glucose is 113, total bilirubin 0.4, AST and ALT are normal at 29 and 20 respectively. Serum lipase is normal at 5. I have personally reviewed the abdominal ultrasound, which is remarkable for a large solitary stone impacting gallbladder neck. Also noted is a 3 x 1.7 x 1.3 cm mass adherent to the gallbladder wall. The common bile duct is normal in diameter for this patient's age at 8 mm. There is hrnc-xw-kallciiv gallbladder wall thickening with no pericholecystic fluid noted. IMPRESSION: 1. Acute cholecystitis with cholelithiasis and possible soft tissue tumor of the gallbladder. 2. Acute hypokalemia, likely secondary to chronic diarrhea. PLAN: 1. Correct abnormal electrolytes. 2. The patient will need laparoscopic cholecystectomy. The above findings and plan have been discussed with the patient and her by telephone conversation on face time. This was conducted in the presence of the patient's nurse at bedside. The patient and her both indicated understanding the information given. I have advised the patient of the risks and benefits of the proposed surgery to include, but not limited to bleeding, infection, injury to bile duct or surrounding structures. She has indicated understanding information provided and has granted consent for this admission and surgical intervention. Job ID: [id number]
[2019-06-16] MEDS ORDERED: Succinylcholine Chloride 20 MG/ML 10 ml SYRINGE FS ONE (12:03)
[2019-06-16] MEDS ORDERED: Dexamethasone 20 MG/5 ML VIAL ONE (12:03)
[2019-06-16] MEDS ORDERED: Rocuronium Bromide 10 MG/ML (10ML VIAL) ONE (12:03)
[2019-06-16] MEDS ORDERED: Labetalol HCl 100 MG/20 ML VIAL ONE (12:03)
[2019-06-16] MEDS ORDERED: Ketorolac Tromethamine 30 MG/ML VIAL ONE (12:03)
[2019-06-16] MEDS ORDERED: Fentanyl 100 MCG/2 ML VIAL ONE ×2 (12:03)
[2019-06-16] MEDS ORDERED: Ondansetron PF 4 MG/2 ML Vial ONE (12:03)
[2019-06-16] MEDS ORDERED: PROPOFOL 200 MG/20 ML VIAL ONE (12:03)
[2019-06-16] MEDS ORDERED: EPHEDRINE 25 MG/5 ML SYRINGE ONE (12:03)
[2019-06-16] MEDS ORDERED: diphenhydrAMINE 50 MG/ML VIAL ONE (12:03)
[2019-06-16] MEDS ORDERED: Dextrose 5% in Water 1,000 ML IV PRN (14:17)
[2019-06-16] MEDS ORDERED: Promethazine HCl 25 MG/ML VIAL IM PRN (14:17)
[2019-06-16] MEDS ORDERED: Calcium Carbonate 500 MG ChewTAB PO PRN (14:17)
[2019-06-16] MEDS ORDERED: Mag-Al 1200 mg/1200 mg/30 ML UDCUP PO PRN (14:17)
[2019-06-16] MEDS ORDERED: Ondansetron PF 4 MG/2 ML Vial IVP PRN (14:17)
[2019-06-16] MEDS ORDERED: Dextrose 50% Abboject 50 ML SYRINGE SLOW IVP PRN (14:17)
[2019-06-16] MEDS ORDERED: hydrALAZINE 20 MG/ML VIAL SLOW IVP PRN (14:17)
[2019-06-16] MEDS ORDERED: traMADol HCl 50 MG TAB PO PRN ×2 (14:24)
[2019-06-16 16:35] VITALS: BMI 20.8
[2019-06-16] MEDS: Acetaminophen 325 MG TAB PO SCH ×2 (17:46→20:38)
[2019-06-16] MEDS: D5 1/2 NS w/20 mEq KCL 1,000 ML IV SCH ×2 (17:47→18:08)
[2019-06-16] MEDS: Ketorolac Tromethamine 30 MG/ML VIAL IVP SCH (18:08)
[2019-06-16 20:31] LABS: Anion Gap 12 mmol/L (10-20); BUN (Urea Nitrogen) 9 mg/dL (9.8-20.1); Calc. Creatinine Clearance 51 mL/min (70-130); Calcium 9.1 mg/dL (7.8-10.44); Carbon Dioxide 28 mmol/L (23-31); Chloride 103 mmol/L (98-107); Estimated GFR-MDRD 74; Glucose 158 mg/dL (83-110); Sodium 140 mmol/L (136-145)
[2019-06-16] MEDS: Famotidine 20 MG TAB PO SCH (20:38)
[2019-06-16] MEDS: Famotidine/PF 20 mg/2ml Vial SLOW IVP SCH (20:38)
--- NOTE | 2019-06-16 20:56 | OP ---
DATE OF PROCEDURE: 06/16/2019 PREOPERATIVE DIAGNOSES: Acute cholecystitis and cholelithiasis. POSTOPERATIVE DIAGNOSES: Acute cholecystitis and cholelithiasis. PROCEDURE PERFORMED: Laparoscopic cholecystectomy. ANESTHESIA: General endotracheal. ESTIMATED BLOOD LOSS: 15 mL. FLUIDS GIVEN: 900 mL crystalloid. COUNTS: Sponge and instrument counts were verified as correct x2. COMPLICATIONS: None apparent at the time of operation. INDICATIONS FOR OPERATION: A 78-year-old woman, presented with recurrent epigastric and right upper quadrant abdominal pain. The pain intensified over the last 24 hours, associated with multiple episodes of nausea, but no emesis. Clinical and radiographic examination were consistent with acute cholecystitis and cholelithiasis, for which the patient was brought to the operating room for cholecystectomy. Findings are consistent with gallbladder in the usual anatomic location, completely encased by omental adhesions. DESCRIPTION OF PROCEDURE: Informed consent was obtained from the patient, brought to the operating room and placed in supine position. Following general anesthesia, a Mcelroy catheter was inserted and a placed to bedside drain. The abdomen was sterilely prepped and draped in the usual fashion. The skin below the umbilicus was infiltrated with 0.25% Marcaine with epinephrine. A small curvilinear infraumbilical incision was made using an 11 scalpel. Umbilical stalk grasped with Nimisha and elevated. Veress needle was inserted through the incision and placed in the peritoneal cavity, through which the abdomen was insufflated with 3 L of CO2 gas. Intraabdominal pressure was noted at 2 mmHg. Following abdominal insufflation, Veress needle was removed and a 5 mm trocar introduced using a Visiport under laparoscopy. Laparoscopy confirmed proper placement of the port, no injuries to underlying structures. Additional laparoscopy revealed the gallbladder in the usual anatomic location, completely encased by omental adhesions. Under direct laparoscopy, a 12 mm epigastric and two 5 mm right lateral subcostal ports were placed after the overlying skin were infiltrated with 0.25% Marcaine with epinephrine and appropriate incision was made. The patient was placed in a reverse Trendelenburg position and rotated to her left. I introduced a [place] dissector with cautery using this to take down omental adhesions to reveal the fundus of the gallbladder. A Prestige grasper was introduced through the right lateral subcostal port grasping the fundus of the gallbladder, which was elevated cephalad. Omental adhesions were then taken down off the remainder of the gallbladder with good hemostasis. A second Prestige grasper was introduced at the Kody pouch, which was retracted laterally. The peritoneum of the gallbladder was opened. The gallbladder neck anteriorly and posteriorly. Critical view of the triangle was obtained after the cystic artery and duct were dissected free from surrounding structures. The duct was divided between clips applying 2 clips proximally and 1 clip at the junction of the cystic duct and gallbladder. Cystic artery was divided between clips in a similar fashion. The gallbladder itself was removed from the liver bed using cautery and passed off the operative field using an EndoCatch. The gallbladder fossa was oozing of venous blood. Hemostasis was readily achieved using Cleve. Finding no other pathology, laparoscopy was terminated. Fascia of the epigastric port was closed using 0 Vicryl suture and Endoclosure device on the laparoscopy. The abdomen was desufflated. All ports and instruments were removed and accounted for. Skin incision was closed using 4-0 Monocryl suture in subcuticular fashion. Dermabond was applied over the incisional closure. The patient tolerated the operation without any apparent complication and was returned to recovery room in satisfactory condition. Job ID: [id number]
[2019-06-16] MEDS ORDERED: Atorvastatin Calcium 10 MG TAB PO SCH (21:00)
[2019-06-16] MEDS ORDERED: Potassium Phosphate 30 MMOL in Sodium Chloride 0.9% 500 ML IVPB SCH (21:15)
[2019-06-16 22:43] LABS: Bacteria/HPF 1+ HPF (None Seen); Bilirubin Negative (Negative); Blood, Urine Negative (Negative); Clarity Clear (Clear); Glucose, Urine (Dipstick) Normal (Negative); Leukocyte 75 Leu/uL (Negative); Nitrite Negative (Negative); Protein, Urine (Dipstick) Negative (Neg-Trace); RBC/HPF 0-3 HPF (0-3); Squamous Epithelial 0-3 HPF (0-3); Urobilinogen Normal mg/dL (Less than 2)
[2019-06-17] MEDS: Ketorolac Tromethamine 30 MG/ML VIAL IVP SCH ×3 (00:01→13:32)
--- NOTE | 2019-06-17 01:49 | PRG ---
DATE OF SERVICE: 06/16/2019 SUBJECTIVE: Ms. Oates remained in surgical floor and was seen on round this evening. The patient is postop day zero of acute cholecystitis, laparoscopic cholecystectomy. The patient tolerated the procedure well. Postop, the patient doing good. Pain is well controlled. Her vital signs are stable. She is able to walk to the restroom for personal care. OBJECTIVE: GENERAL: Currently, the patient is lying in bed comfortable. No acute respiratory distress. VITAL SIGNS: Stable. LUNGS: Clear bilaterally. HEART: Regular rate and rhythm. ABDOMEN: Soft, nondistended. Mild tender of the incision site. Bowel sounds hypoactive. LABORATORY DATA: Show potassium is 3.0. ASSESSMENT: 1. Status post laparoscopic cholecystectomy due to acute cholecystitis, postop day zero. 2. Hypokalemia. PLAN: Continue supportive care. Continue pain control. Encourage working with Physical Therapy and Occupational Therapy. Encourage physical activity. Replace potassium IV. Anticipate discharge home tomorrow. Discharge home in the next 24 to 48 hours. Job ID: [id number]
[2019-06-17] MEDS: Acetaminophen 325 MG TAB PO SCH ×2 (03:12→09:13)
[2019-06-17 06:37] LABS: ALT (SGPT) 19 U/L (8-55); AST (SGOT) 38 U/L (5-34); Albumin 3.1 g/dL (3.4-4.8); Alkaline Phosphatase 72 U/L (40-110); Anion Gap 14 mmol/L (10-20); BUN (Urea Nitrogen) 10 mg/dL (9.8-20.1); Bilirubin, Total 0.5 mg/dL (0.2-1.2); Calc. Creatinine Clearance 54 mL/min (70-130); Calcium 8.7 mg/dL (7.8-10.44); Carbon Dioxide 25 mmol/L (23-31); Chloride 106 mmol/L (98-107); Estimated GFR-MDRD 79; Globulin 2.6 g/dL (2.4-3.5); Glucose 102 mg/dL (83-110); Potassium 3.8 mmol/L (3.5-5.1); Protein, Total 5.7 g/dL (6.0-8.3); Sodium 141 mmol/L (136-145)
[2019-06-17 06:47] LABS: #Eosinphils 0.1 thou/uL (0.0-0.7); #Lymphocytes 1.3 thou/uL (1.20-3.40); #Monocytes 0.9 thou/uL (0.11-0.59); %Basophils 0.2 % (0.0-1.0); %Eosinophils 0.7 % (0.0-10.0); %Lymphocytes 15.4 % (21.0-51.0); %Monocytes 10.5 % (0.0-10.0); %Neutrophils 73.2 % (42.0-75.0); Hemoglobin 10.5 g/dL (12.0-16.0); Mean Corpuscular HGB CONC 31.5 g/dL (32.0-36.0); Mean Corpuscular Hemoglobin 28.3 pg (27.0-31.0); Mean Corpuscular Volume 89.9 fL (78.0-98.0); Mean Platelet Volume 9.4 fL (7.4-10.4); Platelet Count 155 thou/uL (130-400); RBC Distribution Width 14.2 % (11.5-14.5); White Blood Cell (WBC) Count 8.1 thou/uL (4.8-10.8)
[2019-06-17] MEDS ORDERED: FLUoxetine HCl 20 MG CAP PO SCH (09:00)
[2019-06-17] MEDS: Famotidine 20 MG TAB PO SCH (09:16)
[2019-06-17] MEDS: Famotidine/PF 20 mg/2ml Vial SLOW IVP SCH (09:17)
[2019-06-17] MEDS: D5 1/2 NS w/20 mEq KCL 1,000 ML IV SCH (10:42)
--- NOTE | 2019-06-17 11:35 | PRG ---
DATE OF SERVICE: 06/17/2019 SUBJECTIVE: Ms. Oates is a 78-year-old woman who is postop day #1, status post laparoscopic cholecystectomy. The patient had preadmission history of greater than 20-pound weight loss over the last one year associated with chronic diarrhea. This is pending evaluation by Gastroenterology. This morning, the patient is awake and alert. She reports adequate pain control. She is tolerating diet. She is having adequate urinary function. OBJECTIVE: VITAL SIGNS: This morning include blood pressure 114/70, pulse 72, respiratory rate 16, temperature 97.6 degrees Fahrenheit, and oxygen saturation is 97% on room air. HEART: Reveals regular rate and rhythm. LUNGS: Clear to auscultation bilaterally. Breathing, regular and nonlabored. ABDOMEN: Soft and nondistended. Incisions are intact, clean, dry with mild incisional tenderness to palpation. Clearly no rebound tenderness present. NEUROLOGIC: Reveals no focal deficits present. LABORATORY FINDINGS: Include CBC with 8001 white blood cells, hemoglobin and hematocrit 10.5 and 33.3 respectively, platelet count is 155,000. Metabolic profile; sodium 141, potassium 3.8, chloride is 106, bicarb is 25, BUN is 10, creatinine 0.72, glucose is 102. Total bilirubin remains normal at 0.5, AST and ALT noted at 38 and 19 respectively. Alkaline phosphatase is normal at 72. IMPRESSION: 1. Postop day #1, status post laparoscopic cholecystectomy. Pathology report is pending. 2. History of chronic diarrhea and weight loss. PLAN: 1. Discuss with the patient's Gastroenterology and we will proceed with CT scan of the abdomen and pelvis with p.o. and IV contrast. 2. The patient will be discharged home today to follow up with me in clinic in 2 weeks. She is encouraged to follow up with Gastroenterology for completion of the workup of recent weight loss and chronic diarrhea to exclude any colon neoplasm. 3. The patient indicates understanding information given. I have answered her questions. Job ID: [id number]
[2019-06-17 11:52] VITALS: BP 157/80; TEMP 97.7
--- NOTE | 2019-06-17 14:03 | CT ---
CT ABDOMEN AND PELVIS WITH IV CONTRAST: Date: 06/17/2019 PROVIDED CLINICAL HISTORY: Abdominal pain and weight loss. Recent cholecystectomy. FINDINGS: There are no relevant comparison examinations. Subsegmental atelectatic changes are seen at both lung bases with trace bilateral pleural fluid. Pneumoperitoneum and subcutaneous gas are seen compatible with provided clinical history of recent ch olecystectomy. There is a large simple appearing cystic structure present in the region of the right renal pelvis. T here is a smaller cystic structure present in the superior pole of the right renal pelvis. There is n o definite evidence for caliectasis and findings are probably on the basis of parapelvic cysts/promin ent extrarenal pelvis. Excretory images would be necessary to exclude obstructive change. The solid abdominal organs demonstrate an otherwise unremarkable CT appearance. Changes of cholecystectomy are seen without evidence for focal fluid collection. There is minimal hyp odensity involving the liver immediately adjacent to the gallbladder fossa, nonspecific. No evidence for significant free intraperitoneal fluid or localized intraperitoneal fat stranding. Th ere is no evidence for bowel obstruction. Sigmoid colonic diverticulosis changes are seen without chino dence for diverticulitis. Vascular calcifications are noted involving the abdominal aorta and its branches. The osseous structures demonstrate no concerning lytic or blastic lesions. Advanced multilevel lumbar degenerative change noted. IMPRESSION: 1. Findings compatible with provided clinical history of recent cholecystectomy. No evidence for com plication. 2. Probable parapelvic right renal cysts versus less likely chronic UPJ obstruction. Consider [facility] excretory imaging as indicated. POS: JOCY
[2019-06-17] MEDS ORDERED: Iopamidol-370 76% 500 ML 1 ML ONE (14:11)
--- NOTE | 2019-06-18 12:56 | DIS ---
DATE OF ADMISSION: 06/16/2019 DATE OF DISCHARGE: 06/17/2019 ADMISSION DIAGNOSES: 1. Acute cholecystitis with cholelithiasis and possible soft tissue tumor of the gallbladder. 2. Acute hypokalemia secondary to chronic diarrhea. CONSULTATIONS: None. PROCEDURES: Laparoscopic cholecystectomy. HOSPITAL COURSE: The patient is a 78-year-old woman who presented to the emergency department with epigastric pain, migrated to the right upper quadrant and her back. She underwent evaluation and examination, and was noted to have acute cholecystitis with cholelithiasis. The patient also gave a history of chronic dysphagia, chronic diarrhea, and a 20-pound weight loss over the previous year. The patient underwent her above procedure and tolerated it well. While here, she also underwent CT examination of her abdomen and pelvis with IV and oral contrast which was unremarkable with the exception of a nonspecific minimal hypodensity involving the liver immediately adjacent to the gallbladder fossa. Again, this was noted to be nonspecific. At the time of discharge, the patient's pain was controlled. She was tolerating a diet. Her LFTs were normal. The patient will follow up with Dr. Gonzalez in 2 weeks or sooner as needed. The patient was also instructed to follow up with her primary care provider regarding her chronic diarrhea and weight loss. Job ID: [id number]
== END 2019-06-17 14:55 | disposition home or self-care (01) ==
LOC: ERS 08:34 → SURG A 14:26
PROVIDERS: ADMIT Surgery; ATTEND Surgery
PROC: 0FT44ZZ Resection of Gallbladder, Percutaneous Endoscopic Approach (ICD-10-PCS; principal; 2019-06-16)
DX: K80.00 Calculus of gallbladder with acute cholecystitis without obstruction (principal); K66.0 Peritoneal adhesions (postprocedural) (postinfection); K59.09 Other constipation; E87.6 Hypokalemia; G30.1 Alzheimer's disease with late onset; F02.80 Dementia in other diseases classified elsewhere, unspecified severity, without behavioral disturbance, psychotic disturbance, mood disturbance, and anxiety; E78.5 Hyperlipidemia, unspecified; I10 Essential (primary) hypertension; M79.7 Fibromyalgia; F32.9 Major depressive disorder, single episode, unspecified; N28.1 Cyst of kidney, acquired; R63.4 Abnormal weight loss; Z68.20 Body mass index [BMI] 20.0-20.9, adult; Z86.12 Personal history of poliomyelitis; Z87.891 Personal history of nicotine dependence; Z79.82 Long term (current) use of aspirin; Z79.899 Other long term (current) drug therapy
CPT/HCPCS: 47562; 74177; 76705; 80048; 80053 ×2; 83690; 84484; 85025 ×2; 85610; 85730; 88304; 93005; 96361; 96365; 96366 ×2; 96375; 96376; 97139 ×2; 99285; G0378 ×2; J0694; J1100; J1200; J1885 ×2; J2405; J2704; J3010; J7030; Q9967; 36415; 81003; 81015; J0171; J3480; S0020

== ENCOUNTER 2019-07-27 07:00 | Outpatient (CLI) | payer MEDICARE, OTHER ==
[2019-07-27 17:45] LABS: SARS-CoV-2 MS2 Positive; SARS-CoV-2 N Gene Negative; SARS-CoV-2 S Gene Negative; SARS-CoV-2 orf1ab Negative
== END 2019-07-27 07:01 | disposition home or self-care (01) ==
LOC: LABBT 07:00
PROVIDERS: ATTEND Internal Medicine Gastroenterology
DX: Z01.812 Encounter for preprocedural laboratory examination (principal); Z11.59 Encounter for screening for other viral diseases
CPT/HCPCS: 87635; U0003

== ENCOUNTER → 2019-07-30 | Day surgery (SDC) | payer MEDICARE | LOC: ENDO/OP 07:55 | PROVIDERS: ATTEND Internal Medicine Gastroenterology | DX: R13.19 Other dysphagia (principal); I10 Essential (primary) hypertension; R63.4 Abnormal weight loss; Z68.24 Body mass index [BMI] 24.0-24.9, adult; Z87.891 Personal history of nicotine dependence; Z79.82 Long term (current) use of aspirin; Z79.899 Other long term (current) drug therapy | CPT/HCPCS: 91010 ==

== ENCOUNTER 2019-09-10 00:17 | Emergency (ER) | payer MEDICARE ==
[2019-09-10] MEDS ORDERED: Ondansetron PF 4 MG/2 ML Vial ONE (00:45)
[2019-09-10] MEDS ORDERED: Morphine 4 MG/ML VIAL ONE (00:45)
[2019-09-10 01:02] LABS: #Basophils 0.1 thou/uL (0.0-0.2); #Eosinphils 0.1 thou/uL (0.0-0.7); #Lymphocytes 1.4 thou/uL (1.20-3.40); #Monocytes 0.6 thou/uL (0.11-0.59); #Neutrophils 4.8 thou/uL (1.40-6.50); %Basophils 1.1 % (0.0-1.0); %Lymphocytes 20.2 % (21.0-51.0); %Monocytes 8.2 % (0.0-10.0); %Neutrophils 68.5 % (42.0-75.0); Hemoglobin 12.4 g/dL (12.0-16.0); Mean Corpuscular HGB CONC 32.6 g/dL (32.0-36.0); Mean Corpuscular Hemoglobin 29.5 pg (27.0-31.0); Mean Corpuscular Volume 90.4 fL (78.0-98.0); Mean Platelet Volume 9.4 fL (7.4-10.4); Platelet Count 183 thou/uL (130-400); RBC Distribution Width 12.9 % (11.5-14.5)
[2019-09-10 01:31] LABS: Bilirubin Negative (Negative); Blood, Urine Negative (Negative); Glucose, Urine (Dipstick) Negative (Negative); Ketone, Urine Negative (Negative); Leukocyte Negative (Negative); Nitrite Negative (Negative); Protein, Urine (Dipstick) Negative (Neg-Trace); Specific Gravity, Urine 1.015 (1.005-1.030); Urobilinogen 0.2 mg/dL (Less than 2)
[2019-09-10 01:32] LABS: Clarity Clear (Clear)
[2019-09-10 02:00] LABS: Albumin 3.4 g/dL (3.4-4.8)
[2019-09-10 02:01] LABS: Chloride 103 mmol/L (98-107); Potassium 3.2 mmol/L (3.5-5.1); Sodium 138 mmol/L (136-145)
[2019-09-10 02:03] LABS: Globulin 2.5 g/dL (2.4-3.5); Glucose 111 mg/dL (83-110); Protein, Total 5.9 g/dL (6.0-8.3)
[2019-09-10 02:04] LABS: Anion Gap 11 mmol/L (10-20); Carbon Dioxide 27 mmol/L (23-31)
[2019-09-10 02:05] LABS: Alkaline Phosphatase 73 U/L (40-110); Bilirubin, Total 0.3 mg/dL (0.2-1.2)
[2019-09-10 02:06] LABS: Calc. Creatinine Clearance 0 mL/min (70-130); Estimated GFR-MDRD 62
[2019-09-10 02:07] LABS: BUN (Urea Nitrogen) 13 mg/dL (9.8-20.1)
[2019-09-10 02:08] LABS: ALT (SGPT) 9 U/L (8-55); AST (SGOT) 18 U/L (5-34)
[2019-09-10 02:09] LABS: Lipase 7 U/L (8-78)
--- NOTE | 2019-09-10 08:06 | CT ---
PRELIMINARY REPORT/[facility]/EMERGENCY AFTER HOURS PROCEDURE EXAM: CT Abdomen and Pelvis with Intravenous Contrast CLINICAL HISTORY: 79-year-old female patient presents to the ER with complaint of diffuse abdominal pain that began nicholas und 10 PM tonight. Patient reports that she sees gastroenterology for chronic abdominal pain and malabsorption problems which are controlled with oral medications. Surgical history of cholecystectom y, Surgical history of appendectomy, Surgical history of hysterectomy TECHNIQUE: Axial computed tomography images of the abdomen and pelvis with intravenous contrast. Coronal and sa gittal reformatted images provided. CONTRAST: With; ISOVUE 370, 85 ML COMPARISON: CT abdomen and pelvis 06/17/2019. FINDINGS: LUNG BASES: Emphysematous changes in the lung bases. Bibasilar linear subsegmental atelectasis or scarring. No pl eural effusion. The heart is normal size. No pericardial effusion. LIVER: Unremarkable. GALLBLADDER AND BILE DUCTS: Surgical clips in the gallbladder fossa from prior cholecystectomy. The common bile duct measures up to 1.3 cm in diameter with tapering towards the ampulla. Mild intrahepatic dilation. PANCREAS: Unremarkable. SPLEEN: Unremarkable. ADRENAL GLANDS: Unremarkable. KIDNEYS, URETERS, AND BLADDER: There is marked dilation of the right renal pelvis with hydronephrosis, unchanged from prior. No rubio nephric fat stranding. Bilateral small exophytic cysts. The ureter is normal caliber. No stones. Left-sided extrarenal pelvis. Mild urothelial enhancement of the left ureter. STOMACH AND BOWEL: No obstruction. No wall thickening. Colonic diverticulosis. There is fluid within the colon. No CT evidence of colitis or acute diverticulitis. APPENDIX: No CT evidence for appendicitis. PERITONEUM: No free fluid. No free air. LYMPH NODES: No lymphadenopathy. REPRODUCTIVE: Unremarkable as visualized. VASCULATURE: No aortic aneurysm. Atherosclerotic vascular disease. BONES: No fracture or suspicious osseous abnormality. Degenerative change in the lumbar spine with grade 1 anterolisthesis of L4 on L5. ABDOMINAL WALL AND SOFT TISSUES: Unremarkable. IMPRESSION: 1. Mild diffuse enhancement of the left ureter and renal collecting system. This is nonspecific but can be seen in the setting of urinary tract infection. 2. Chronic dilation of the right renal pelvis without acute findings. This may be associated with U PJ obstruction. 3. Diverticulosis without evidence of diverticulitis. 4. Some fluid identified within the colon. This can be seen in the setting of diarrhea causing illn ess but is nonspecific. 5. Emphysema. ELECTRONICALLY SIGNED BY: Feliz Turk M.D. Sep 10, 2019 2:43:14 AM CDT This report is intended for review by the ordering physician only, in accordance of law. If you recei ve this report in error, please call [facility] at [phone]. FINAL REPORT Emergent after hours CT abdomen and pelvis with IV contrast HISTORY: Diffuse abdominal pain. Malabsorption problems. Surgical history of prior hysterectomy and a ppendectomy. Cholecystectomy. COMPARISON: 06/17/2019 IMPRESSION: 1. Mild wall thickening and enhancement of the left ureter. This does represent an interval change fr om the prior exam. This can be seen with urinary tract infection. 2. Moderate right hydronephrosis and marked dilatation of the right renal pelvis which is from prior study and likely related to UPJ type obstruction. 3. Cholecystectomy. 4. Hysterectomy. 5. Colonic diverticulosis. There is small amount of fluid seen within the colon. 6. Mild chronic bibasilar lung changes. 7. Multilevel degenerative changes in the spine. 8. Grade I anterolisthesis of L4 on L5. Findings are in agreement with preliminary report by [facility]. Transcribed Date/Time: 09/10/2019 8:29 AM
[2019-09-10] MEDS ORDERED: Iopamidol 370 76% 100 ML VIAL ONE (14:22)
== END 2019-09-10 03:39 | disposition home or self-care (01) ==
LOC: ERS 00:17
DX: R10.9 Unspecified abdominal pain (principal); E78.5 Hyperlipidemia, unspecified; I10 Essential (primary) hypertension; M79.7 Fibromyalgia; F32.9 Major depressive disorder, single episode, unspecified; F03.90 Unspecified dementia, unspecified severity, without behavioral disturbance, psychotic disturbance, mood disturbance, and anxiety; Z79.82 Long term (current) use of aspirin; Z79.899 Other long term (current) drug therapy
CPT/HCPCS: 36415; 74177; 80053; 81003; 83690; 85025; 96361; 96374; 96375; J2270; J2405; Q9967

== ENCOUNTER 2020-06-24 12:05 | Observation (INO) | payer MEDICARE ==
[2020-06-24] MEDS ORDERED: Iopamidol 370 76% 100 ML VIAL ONE (12:55)
[2020-06-24 13:26] LABS: #Eosinphils 0.2 thou/uL (0.0-0.7); #Monocytes 0.5 thou/uL (0.11-0.59); #Neutrophils 5.3 thou/uL (1.40-6.50); %Basophils 0.6 % (0.0-1.0); %Lymphocytes 13.7 % (21.0-51.0); %Monocytes 6.5 % (0.0-10.0); %Neutrophils 76.2 % (42.0-75.0); Hemoglobin 12.3 g/dL (12.0-16.0); Mean Corpuscular Hemoglobin 28.6 pg (27.0-31.0); Mean Corpuscular Volume 89.5 fL (78.0-98.0); Mean Platelet Volume 8.8 fL (7.4-10.4); Platelet Count 180 thou/uL (130-400); RBC Distribution Width 14.9 % (11.5-14.5); Red Blood Cell (RBC) Count 4.28 mill/uL (4.20-5.40); White Blood Cell (WBC) Count 6.9 thou/uL (4.8-10.8)
[2020-06-24 13:52] LABS: ALT (SGPT) 14 U/L (8-55); AST (SGOT) 28 U/L (5-34); Albumin 3.7 g/dL (3.4-4.8); Alkaline Phosphatase 86 U/L (40-110); Anion Gap 16 mmol/L (10-20); BUN (Urea Nitrogen) 8 mg/dL (9.8-20.1); Bilirubin, Total 0.3 mg/dL (0.2-1.2); Calc. Creatinine Clearance 0 mL/min (70-130); Calcium 9.3 mg/dL (7.8-10.44); Carbon Dioxide 20 mmol/L (23-31); Chloride 108 mmol/L (98-107); Glucose 96 mg/dL (83-110); Lipase 12 U/L (8-78); Potassium 3.7 mmol/L (3.5-5.1); Protein, Total 6.7 g/dL (5.8-8.1); Sodium 140 mmol/L (136-145)
[2020-06-24] MEDS ORDERED: Lidocaine 1% w/Epinephrine 1:100K 20 ML VIAL ONE (14:35)
[2020-06-24] MEDS ORDERED: Aspirin Chewable 81 MG TAB ONE (16:46)
[2020-06-24 17:23] LABS: Troponin I Less than 0.010 ng/mL (< 0.028)
[2020-06-24 17:29] VITALS: BMI 24.3
[2020-06-24] MEDS ORDERED: Ondansetron HCl/PF 8 MG in Sodium Chloride 0.9% 50 ML IVPB PRN (18:03)
[2020-06-24] MEDS ORDERED: Acetaminophen 325 MG TAB PO PRN (18:04)
[2020-06-24] MEDS: Sodium Chloride 0.9% 1,000 ML IV SCH (18:45)
[2020-06-24 19:04] LABS: Bacteria/HPF None Seen HPF (None Seen); Bilirubin Negative (Negative); Blood, Urine Negative (Negative); Clarity Clear (Clear); Glucose, Urine (Dipstick) Normal (Negative); Ketone, Urine Trace mg/dL (Negative); Leukocyte Negative Leu/uL (Negative); Nitrite Negative (Negative); Protein, Urine (Dipstick) Negative (Neg-Trace); RBC/HPF 0-3 HPF (0-3); Specific Gravity, Urine 1.043 (1.002-1.036); Squamous Epithelial 0-3 HPF (0-3); Urobilinogen Normal mg/dL (Less than 2); WBC/HPF 0-3 HPF (0-3); pH, Urine 6.5 (5.0-9.0)
[2020-06-24 19:05] LABS: Urine Culture Reflex No No
[2020-06-24] MEDS: Apixaban 5 MG TAB PO SCH (20:38)
[2020-06-24] MEDS ORDERED: Atorvastatin Calcium 10 MG TAB PO SCH (21:00)
[2020-06-25 00:31] LABS: SARS-CoV-2 PCR by NAA Not Detected (NotDetected)
[2020-06-25 05:02] LABS: #Eosinphils 0.2 thou/uL (0.0-0.7); #Lymphocytes 1.3 thou/uL (1.20-3.40); #Monocytes 0.4 thou/uL (0.11-0.59); #Neutrophils 2.6 thou/uL (1.40-6.50); %Basophils 0.7 % (0.0-1.0); %Eosinophils 5.1 % (0.0-10.0); %Lymphocytes 28.7 % (21.0-51.0); %Neutrophils 56.5 % (42.0-75.0); Hemoglobin 9.8 g/dL (12.0-16.0); Mean Corpuscular HGB CONC 31.1 g/dL (32.0-36.0); Mean Corpuscular Hemoglobin 27.7 pg (27.0-31.0); Mean Platelet Volume 9.1 fL (7.4-10.4); Platelet Count 156 thou/uL (130-400); RBC Distribution Width 14.7 % (11.5-14.5); Red Blood Cell (RBC) Count 3.55 mill/uL (4.20-5.40); White Blood Cell (WBC) Count 4.6 thou/uL (4.8-10.8)
[2020-06-25 05:19] LABS: Anion Gap 11 mmol/L (10-20); BUN (Urea Nitrogen) 7 mg/dL (9.8-20.1); Calc. Creatinine Clearance 58 mL/min (70-130); Calcium 8.3 mg/dL (7.8-10.44); Carbon Dioxide 25 mmol/L (23-31); Cardiac Risk 2.9 (Less than 4.5); Chloride 108 mmol/L (98-107); Cholesterol 137 mg/dl (< 200 Desired); Glucose 92 mg/dL (83-110); HDL Cholesterol 47 mg/dL (>60 Neg Risk); LDL Cholesterol, Calculated 77 mg/dL; Potassium 3.5 mmol/L (3.5-5.1); Sodium 140 mmol/L (136-145); Triglycerides 65 mg/dL (Less than 150)
[2020-06-25] MEDS: Aspirin 81 mg Enteric Coated Tablet PO SCH ×2 (08:46→12:49)
[2020-06-25] MEDS: Apixaban 5 MG TAB PO SCH (08:46)
[2020-06-25] MEDS: FLUoxetine HCl 20 MG CAP PO SCH ×2 (08:46→12:49)
[2020-06-25] MEDS: Losartan 25 MG TAB PO SCH ×2 (08:46→12:49)
[2020-06-25] MEDS ORDERED: Regadenoson 0.4 MG/5 ML SYRINGE ONE (11:54)
[2020-06-25 12:44] VITALS: TEMP 97.7
[2020-06-25] MEDS: Sodium Chloride 0.9% 1,000 ML IV SCH (15:23)
[2020-06-25 17:40] VITALS: BP 154/78
== END 2020-06-25 17:43 | disposition home or self-care (01) ==
LOC: ERS 12:05 → 2SW 15:55
PROVIDERS: ADMIT Specialist; ATTEND Specialist
DX: R55 Syncope and collapse (principal); R07.2 Precordial pain; E78.5 Hyperlipidemia, unspecified; I10 Essential (primary) hypertension; F03.90 Unspecified dementia, unspecified severity, without behavioral disturbance, psychotic disturbance, mood disturbance, and anxiety; J44.9 Chronic obstructive pulmonary disease, unspecified; M79.7 Fibromyalgia; Z86.12 Personal history of poliomyelitis; Z87.891 Personal history of nicotine dependence; Z79.01 Long term (current) use of anticoagulants; Z79.82 Long term (current) use of aspirin; Z79.899 Other long term (current) drug therapy; Z20.822 Contact with and (suspected) exposure to COVID-19
CPT/HCPCS: 71045; 71275; 78452; 80048; 80053; 80061; 81001; 83690; 83880; 84484 ×2; 85025 ×2; 85379; 93005; 93017; 93306; 99285; A9500; G0378 ×3; U0003; U0005; 36415; 87635; J2785; Q9967

== ENCOUNTER 2020-12-08 07:36 | Day surgery (SDC) | payer MEDICARE ==
[2020-12-08 08:48] VITALS: BP 151/76; TEMP 98.1; BMI 215.3
[2020-12-10 14:21] LABS: Ref Lab Test Ordered 42/40 RATIO CSF; Reference Lab Name LABCORP
== END 2020-12-08 10:15 | disposition home or self-care (01) ==
LOC: RAD 07:36
PROVIDERS: ATTEND Specialist
DX: G30.9 Alzheimer's disease, unspecified (principal); F02.80 Dementia in other diseases classified elsewhere, unspecified severity, without behavioral disturbance, psychotic disturbance, mood disturbance, and anxiety
CPT/HCPCS: 72131; 77002

== ENCOUNTER 2020-12-16 10:28 | Emergency (ER) | payer MEDICARE ==
[2020-12-16 11:20] LABS: Mean Corpuscular HGB CONC 34.6 g/dL (32.0-36.0); Mean Corpuscular Hemoglobin 33.2 pg (27.0-31.0); Mean Platelet Volume 8.5 fL (7.4-10.4); Platelet Count 199 thou/uL (130-400); RBC Distribution Width 11.4 % (11.5-14.5); Red Blood Cell (RBC) Count 3.92 mill/uL (4.20-5.40); White Blood Cell (WBC) Count 6.6 thou/uL (4.8-10.8)
[2020-12-16 11:40] LABS: ALT (SGPT) 8 U/L (8-55); AST (SGOT) 15 U/L (5-34); Albumin 2.7 g/dL (3.4-4.8); Alkaline Phosphatase 80 U/L (40-110); Anion Gap 9 mmol/L (10-20); BUN (Urea Nitrogen) 18 mg/dL (9.8-20.1); Bilirubin, Total 0.3 mg/dL (0.2-1.2); Calc. Creatinine Clearance 0 mL/min (70-130); Calcium 8.7 mg/dL (7.8-10.44); Carbon Dioxide 24 mmol/L (23-31); Chloride 104 mmol/L (98-107); Globulin 2.7 g/dL (2.4-3.5); Glucose 103 mg/dL (83-110); Protein, Total 5.4 g/dL (5.8-8.1); Sodium 134 mmol/L (136-145)
[2020-12-16 11:45] LABS: Band 4 % (5-11); Lymphocytes 25 % (21-51); MDiff Complete? YES; Monocytes 14 % (0-10); Neutrophil 53 % (42-75); Platelet Morphology Comment Appears Adequate; Reactive Lymphocytes 4 % (0-10); Vacuoles SLIGHT
[2020-12-16] MEDS ORDERED: Potassium Chloride 20 MEQ TAB ONE (12:37)
[2020-12-16] MEDS ORDERED: Potassium Bicarbonate/Cit Ac 25 MEQ TAB ONE (12:47)
[2020-12-16] MEDS ORDERED: Ondansetron PF 4 MG/2 ML Vial ONE (13:15)
== END 2020-12-16 15:29 | disposition home or self-care (01) ==
LOC: ERS 10:28
DX: R19.7 Diarrhea, unspecified (principal); E87.6 Hypokalemia; I10 Essential (primary) hypertension; E78.5 Hyperlipidemia, unspecified; M79.7 Fibromyalgia; J44.9 Chronic obstructive pulmonary disease, unspecified; Z86.12 Personal history of poliomyelitis; Z87.891 Personal history of nicotine dependence; Z79.82 Long term (current) use of aspirin; Z79.899 Other long term (current) drug therapy
CPT/HCPCS: 36415; 80053; 83735; 85025; 93005; 94760; 96374; J2405

== ENCOUNTER 2020-12-19 17:02 | Outpatient (CLI) | payer MEDICARE ==
[2020-12-20 00:09] LABS: SARS-CoV-2 PCR by NAA Not Detected (NotDetected)
== END 2020-12-19 17:03 | disposition home or self-care (01) ==
LOC: LABBT 17:02
PROVIDERS: ATTEND Internal Medicine Gastroenterology
DX: Z01.812 Encounter for preprocedural laboratory examination (principal); Z20.822 Contact with and (suspected) exposure to COVID-19
CPT/HCPCS: U0003; U0005

== ENCOUNTER 2020-12-21 10:02 | Day surgery (SDC) | payer MEDICARE ==
[2020-12-20 12:35] VITALS: BMI 20.7
[2020-12-21] MEDS ORDERED: PROPOFOL 200 MG/20 ML VIAL ONE (13:03)
== END 2020-12-21 15:20 | disposition home or self-care (01) ==
LOC: SDC 10:02
PROVIDERS: ATTEND Internal Medicine Gastroenterology
PROC: 0DH63UZ Insertion of Feeding Device into Stomach, Percutaneous Approach (ICD-10-PCS; principal; 2020-12-21)
DX: E43 Unspecified severe protein-calorie malnutrition (principal); R63.0 Anorexia; R63.4 Abnormal weight loss; K29.60 Other gastritis without bleeding; K52.9 Noninfective gastroenteritis and colitis, unspecified; E87.6 Hypokalemia; I10 Essential (primary) hypertension; E78.5 Hyperlipidemia, unspecified; K21.9 Gastro-esophageal reflux disease without esophagitis; M19.90 Unspecified osteoarthritis, unspecified site; M54.16 Radiculopathy, lumbar region; J44.9 Chronic obstructive pulmonary disease, unspecified; F03.90 Unspecified dementia, unspecified severity, without behavioral disturbance, psychotic disturbance, mood disturbance, and anxiety; R13.10 Dysphagia, unspecified; Z68.20 Body mass index [BMI] 20.0-20.9, adult; Z87.891 Personal history of nicotine dependence; Z79.82 Long term (current) use of aspirin; Z79.899 Other long term (current) drug therapy
CPT/HCPCS: J2704

== ENCOUNTER 2020-12-24 18:30 | Inpatient (IN) | payer MEDICARE ==
[2020-12-24] MEDS ORDERED: Diltiazem 125 MG/25 ML ONE (21:20)
[2020-12-24] MEDS ORDERED: Diltiazem HCl 125 MG, Admixture Fee 1 EACH in Sodium Chloride 0.9% 100 ML IVPB SCH (21:30)
[2020-12-24 21:42] LABS: Mean Corpuscular HGB CONC 33.7 g/dL (32.0-36.0); Mean Corpuscular Hemoglobin 33.1 pg (27.0-31.0); Mean Corpuscular Volume 98.2 fL (78.0-98.0); Mean Platelet Volume 8.8 fL (7.4-10.4); Platelet Count 219 thou/uL (130-400); RBC Distribution Width 11.5 % (11.5-14.5); Red Blood Cell (RBC) Count 3.62 mill/uL (4.20-5.40); White Blood Cell (WBC) Count 18.5 thou/uL (4.8-10.8)
[2020-12-24 21:42] LABS: ALT (SGPT) 8 U/L (8-55); AST (SGOT) 11 U/L (5-34); Albumin 2.8 g/dL (3.4-4.8); Alkaline Phosphatase 95 U/L (40-110); BUN (Urea Nitrogen) 30 mg/dL (9.8-20.1); Bilirubin, Total 0.4 mg/dL (0.2-1.2); Calc. Creatinine Clearance 0 mL/min (70-130); Calcium 8.9 mg/dL (7.8-10.44); Carbon Dioxide 22 mmol/L (23-31); Chloride 102 mmol/L (98-107); Globulin 2.8 g/dL (2.4-3.5); Glucose 101 mg/dL (83-110); Potassium 3.2 mmol/L (3.5-5.1); Protein, Total 5.6 g/dL (5.8-8.1)
[2020-12-24 21:49] LABS: INR-International Normal Ratio 1.1; PTT 37.3 sec (22.9-36.1); Prothrombin Time 14.6 sec (12.0-14.7)
[2020-12-24 22:04] LABS: CKMB 1.5 ng/mL (0-6.6)
[2020-12-24 22:09] LABS: Band 6 % (5-11); Lymphocytes 3 % (21-51); MDiff Complete? YES; Monocytes 3 % (0-10); Neutrophil 88 % (42-75)
[2020-12-24 22:41] LABS: Sodium 134 mmol/L (136-145)
[2020-12-24 22:56] LABS: Bilirubin Negative (Negative); Blood, Urine Negative (Negative); Clarity Clear (Clear); Glucose, Urine (Dipstick) Normal (Negative); Ketone, Urine Negative (Negative); Leukocyte Negative Leu/uL (Negative); Nitrite Negative (Negative); Protein, Urine (Dipstick) 30 mg/dL (Neg-Trace); RBC/HPF 0-3 HPF (0-3); Squamous Epithelial 0-3 HPF (0-3); Urobilinogen Normal mg/dL (Less than 2); WBC/HPF 0-3 HPF (0-3)
[2020-12-24 22:57] LABS: Bacteria/HPF 1+ HPF (None Seen)
[2020-12-24 23:02] LABS: Anion Gap 13 mmol/L (10-20)
[2020-12-25] MEDS ORDERED: Ondansetron PF 4 MG/2 ML Vial IVP PRN (00:30)
[2020-12-25] MEDS ORDERED: Sodium Chloride 0.9% 1,000 ML IV SCH (00:30)
[2020-12-25] MEDS ORDERED: Ondansetron ODT 4 MG TAB SL PRN (00:30)
[2020-12-25] MEDS: cefTRIAXone\\ROCEPHIN 1 GM in Sodium Chloride 0.9% 100 ML IVPB SCH (00:56)
[2020-12-25] MEDS ORDERED: metroNIDAZOLE 500 MG in Premix Bag 1 BAG IVPB SCH (02:00)
[2020-12-25] MEDS ORDERED: Digoxin 0.5 MG/2 ML AMP SLOW IVP SCH (03:45)
[2020-12-25] MEDS ORDERED: Acetaminophen 650 MG/20.3 ML UDCUP PER TUBE PRN (08:22)
[2020-12-25] MEDS: Aspirin Chewable 81 MG TAB PER TUBE SCH (09:48)
[2020-12-25] MEDS: Pantoprazole 40 MG GRANULES PACKET PER TUBE SCH ×2 (09:48→19:47)
[2020-12-25] MEDS: Digoxin 0.5 MG/2 ML AMP SLOW IVP SCH ×2 (09:48→16:02)
[2020-12-25] MEDS: NS 0.9% w/ 20 MEQ KCL 1,000 ML IV SCH (11:14)
[2020-12-26] MEDS: NS 0.9% w/ 20 MEQ KCL 1,000 ML IV SCH ×2 (00:57→16:30)
[2020-12-26] MEDS: cefTRIAXone\\ROCEPHIN 1 GM in Sodium Chloride 0.9% 100 ML IVPB SCH (01:04)
[2020-12-26 05:39] LABS: #Eosinphils 0.1 thou/uL (0.0-0.7); #Lymphocytes 0.5 thou/uL (1.20-3.40); #Monocytes 0.9 thou/uL (0.11-0.59); #Neutrophils 8.4 thou/uL (1.40-6.50); %Basophils 0.1 % (0.0-1.0); %Eosinophils 1.4 % (0.0-10.0); %Lymphocytes 5.4 % (21.0-51.0); %Monocytes 9.3 % (0.0-10.0); %Neutrophils 83.8 % (42.0-75.0); Hemoglobin 10.3 g/dL (12.0-16.0); Mean Corpuscular HGB CONC 34.7 g/dL (32.0-36.0); Mean Corpuscular Hemoglobin 33.6 pg (27.0-31.0); Mean Corpuscular Volume 96.8 fL (78.0-98.0); Mean Platelet Volume 8.6 fL (7.4-10.4); Platelet Count 205 thou/uL (130-400); RBC Distribution Width 11.7 % (11.5-14.5); Red Blood Cell (RBC) Count 3.08 mill/uL (4.20-5.40)
[2020-12-26 05:58] LABS: Anion Gap 12 mmol/L (10-20); BUN (Urea Nitrogen) 25 mg/dL (9.8-20.1); Calc. Creatinine Clearance 54 mL/min (70-130); Calcium 7.7 mg/dL (7.8-10.44); Carbon Dioxide 17 mmol/L (23-31); Chloride 114 mmol/L (98-107); Glucose 140 mg/dL (83-110); Sodium 140 mmol/L (136-145)
[2020-12-26 05:59] LABS: Digoxin Less than 0.15 ng/mL (0.8-2.0)
[2020-12-26 06:02] LABS: Potassium 2.9 mmol/L (3.5-5.1)
[2020-12-26] MEDS: Diltiazem HCl SR 60 mg Capsule PO SCH ×4 (06:50→16:30)
[2020-12-26] MEDS ORDERED: Enoxaparin Sodium 40 MG/0.4 ML SYRINGE SC SCH (09:00)
[2020-12-26] MEDS ORDERED: Digoxin 0.5 MG/2 ML AMP SLOW IVP SCH (09:00)
[2020-12-26] MEDS: Aspirin Chewable 81 MG TAB PER TUBE SCH (09:35)
[2020-12-26] MEDS: Pantoprazole 40 MG GRANULES PACKET PER TUBE SCH (09:40)
[2020-12-26] MEDS: Potassium Bicarbonate/Cit Ac 20 MEQ TAB PER TUBE SCH ×2 (16:30→21:47)
[2020-12-26] MEDS: Potassium Chloride 20 MEQ TAB PO SCH ×2 (21:52→22:19)
[2020-12-26] MEDS: Enoxaparin Sodium 40 MG/0.4 ML SYRINGE SC SCH (21:53)
[2020-12-27] MEDS ORDERED: Furosemide 20 MG/2 ML VIAL SLOW IVP SCH (00:15)
[2020-12-27] MEDS: Pantoprazole 40 MG GRANULES PACKET PER TUBE SCH ×3 (00:16→21:57)
[2020-12-27] MEDS: Diltiazem HCl SR 60 mg Capsule PO SCH ×3 (00:44→15:23)
[2020-12-27] MEDS: NS 0.9% w/ 20 MEQ KCL 1,000 ML IV SCH ×2 (00:46→07:10)
[2020-12-27] MEDS: cefTRIAXone\\ROCEPHIN 1 GM in Sodium Chloride 0.9% 100 ML IVPB SCH (00:47)
[2020-12-27] MEDS ORDERED: Ondansetron PF 4 MG/2 ML Vial IVP PRN (04:18)
[2020-12-27] MEDS ORDERED: Cholestyramine/Aspartame 4 gm Packet PER TUBE SCH ×2 (05:15→10:00)
[2020-12-27 06:04] LABS: #Lymphocytes 0.7 thou/uL (1.20-3.40); #Monocytes 0.8 thou/uL (0.11-0.59); #Neutrophils 9.3 thou/uL (1.40-6.50); %Basophils 0.1 % (0.0-1.0); %Eosinophils 0.4 % (0.0-10.0); %Lymphocytes 6.8 % (21.0-51.0); %Monocytes 7.5 % (0.0-10.0); %Neutrophils 85.3 % (42.0-75.0); Hemoglobin 10.7 g/dL (12.0-16.0); Mean Corpuscular Volume 97.1 fL (78.0-98.0); Mean Platelet Volume 8.6 fL (7.4-10.4); Platelet Count 229 thou/uL (130-400); RBC Distribution Width 11.8 % (11.5-14.5); Red Blood Cell (RBC) Count 3.26 mill/uL (4.20-5.40); White Blood Cell (WBC) Count 10.9 thou/uL (4.8-10.8)
[2020-12-27 06:50] LABS: Anion Gap 9 mmol/L (10-20); BUN (Urea Nitrogen) 23 mg/dL (9.8-20.1); Calc. Creatinine Clearance 66 mL/min (70-130); Calcium 8.1 mg/dL (7.8-10.44); Carbon Dioxide 23 mmol/L (23-31); Chloride 115 mmol/L (98-107); Glucose 138 mg/dL (83-110); Potassium 4.4 mmol/L (3.5-5.1); Sodium 143 mmol/L (136-145)
[2020-12-27] MEDS ORDERED: Potassium Chloride 20 MEQ TAB PO SCH (08:00)
[2020-12-27] MEDS: Aspirin Chewable 81 MG TAB PER TUBE SCH (09:31)
[2020-12-27] MEDS: Enoxaparin Sodium 40 MG/0.4 ML SYRINGE SC SCH ×2 (09:32→21:57)
[2020-12-27 11:53] VITALS: BMI 20.5
[2020-12-27] MEDS: Potassium Bicarbonate/Cit Ac 20 MEQ TAB PER TUBE SCH ×3 (13:05→21:57)
[2020-12-27] MEDS ORDERED: Loperamide HCl 2 MG CAP PO SCH (14:30)
[2020-12-27] MEDS: Loperamide HCl 2 MG CAP PO PRN (21:57)
[2020-12-27] MEDS: Cholestyramine/Aspartame 4 gm Packet PO SCH (22:01)
[2020-12-28] MEDS: cefTRIAXone\\ROCEPHIN 1 GM in Sodium Chloride 0.9% 100 ML IVPB SCH (00:50)
[2020-12-28] MEDS: Diltiazem HCl SR 60 mg Capsule PO SCH ×4 (00:50→22:58)
[2020-12-28 05:07] LABS: #Eosinphils 0.1 thou/uL (0.0-0.7); #Lymphocytes 0.9 thou/uL (1.20-3.40); #Monocytes 0.9 thou/uL (0.11-0.59); #Neutrophils 7.2 thou/uL (1.40-6.50); %Basophils 0.4 % (0.0-1.0); %Eosinophils 0.7 % (0.0-10.0); %Lymphocytes 10.1 % (21.0-51.0); %Monocytes 9.7 % (0.0-10.0); %Neutrophils 79.1 % (42.0-75.0); Hemoglobin 10.4 g/dL (12.0-16.0); Mean Corpuscular HGB CONC 33.4 g/dL (32.0-36.0); Mean Corpuscular Hemoglobin 32.6 pg (27.0-31.0); Mean Corpuscular Volume 97.6 fL (78.0-98.0); Mean Platelet Volume 8.7 fL (7.4-10.4); Platelet Count 238 thou/uL (130-400); RBC Distribution Width 11.8 % (11.5-14.5); Red Blood Cell (RBC) Count 3.17 mill/uL (4.20-5.40); White Blood Cell (WBC) Count 9.1 thou/uL (4.8-10.8)
[2020-12-28 05:24] LABS: Anion Gap 10 mmol/L (10-20); BUN (Urea Nitrogen) 21 mg/dL (9.8-20.1); Calc. Creatinine Clearance 65 mL/min (70-130); Calcium 8.3 mg/dL (7.8-10.44); Carbon Dioxide 22 mmol/L (23-31); Chloride 117 mmol/L (98-107); Glucose 145 mg/dL (83-110); Potassium 3.7 mmol/L (3.5-5.1); Sodium 145 mmol/L (136-145)
[2020-12-28] MEDS: Enoxaparin Sodium 40 MG/0.4 ML SYRINGE SC SCH ×2 (10:14→20:53)
[2020-12-28] MEDS: Pantoprazole 40 MG GRANULES PACKET PER TUBE SCH ×2 (10:15→20:55)
[2020-12-28] MEDS: Potassium Bicarbonate/Cit Ac 20 MEQ TAB PER TUBE SCH ×3 (10:15→20:55)
[2020-12-28] MEDS: Aspirin Chewable 81 MG TAB PER TUBE SCH (10:16)
[2020-12-28] MEDS: Cholestyramine/Aspartame 4 gm Packet PO SCH ×2 (10:16→21:23)
[2020-12-28] MEDS: Loperamide HCl 2 MG CAP PO PRN (22:57)
[2020-12-29] MEDS: cefTRIAXone\\ROCEPHIN 1 GM in Sodium Chloride 0.9% 100 ML IVPB SCH (01:29)
[2020-12-29 05:39] LABS: #Eosinphils 0.2 thou/uL (0.0-0.7); #Lymphocytes 1.1 thou/uL (1.20-3.40); #Monocytes 1.2 thou/uL (0.11-0.59); #Neutrophils 8.1 thou/uL (1.40-6.50); %Basophils 0.2 % (0.0-1.0); %Eosinophils 1.7 % (0.0-10.0); %Lymphocytes 10.4 % (21.0-51.0); %Monocytes 10.9 % (0.0-10.0); %Neutrophils 76.7 % (42.0-75.0); Hemoglobin 10.7 g/dL (12.0-16.0); Mean Corpuscular HGB CONC 33.5 g/dL (32.0-36.0); Mean Corpuscular Hemoglobin 32.6 pg (27.0-31.0); Mean Corpuscular Volume 97.3 fL (78.0-98.0); Mean Platelet Volume 9.3 fL (7.4-10.4); Platelet Count 177 thou/uL (130-400); RBC Distribution Width 11.9 % (11.5-14.5); Red Blood Cell (RBC) Count 3.28 mill/uL (4.20-5.40); White Blood Cell (WBC) Count 10.5 thou/uL (4.8-10.8)
[2020-12-29 05:55] LABS: Anion Gap 14 mmol/L (10-20); BUN (Urea Nitrogen) 17 mg/dL (9.8-20.1); Calc. Creatinine Clearance 70 mL/min (70-130); Calcium 8.1 mg/dL (7.8-10.44); Carbon Dioxide 20 mmol/L (23-31); Chloride 114 mmol/L (98-107); Glucose 107 mg/dL (83-110); Potassium 4.2 mmol/L (3.5-5.1); Sodium 144 mmol/L (136-145)
[2020-12-29] MEDS: Potassium Bicarbonate/Cit Ac 20 MEQ TAB PER TUBE SCH (09:46)
[2020-12-29] MEDS: Pantoprazole 40 MG GRANULES PACKET PER TUBE SCH (09:46)
[2020-12-29] MEDS: Loperamide HCl 2 MG CAP PO PRN (09:46)
[2020-12-29] MEDS: Enoxaparin Sodium 40 MG/0.4 ML SYRINGE SC SCH (09:46)
[2020-12-29] MEDS: Diltiazem HCl SR 60 mg Capsule PO SCH (09:47)
[2020-12-29] MEDS: Aspirin Chewable 81 MG TAB PER TUBE SCH (09:47)
[2020-12-29 12:02] VITALS: TEMP 98.1
[2020-12-29] MEDS: Cholestyramine/Aspartame 4 gm Packet PO SCH (12:42)
[2020-12-29 13:14] VITALS: BP 131/68
== END 2020-12-29 16:30 | disposition home or self-care (01) | DRG 308 ==
LOC: ERS 18:30 → 3SE 21:57
PROVIDERS: ADMIT Specialist; ATTEND Specialist
DX: I48.0 Paroxysmal atrial fibrillation (principal); E43 Unspecified severe protein-calorie malnutrition; K94.22 Gastrostomy infection; E78.5 Hyperlipidemia, unspecified; J44.9 Chronic obstructive pulmonary disease, unspecified; F32.9 Major depressive disorder, single episode, unspecified; E86.0 Dehydration; D72.829 Elevated white blood cell count, unspecified; F32.A Depression, unspecified; G30.9 Alzheimer's disease, unspecified; F02.80 Dementia in other diseases classified elsewhere, unspecified severity, without behavioral disturbance, psychotic disturbance, mood disturbance, and anxiety; R13.10 Dysphagia, unspecified; E87.6 Hypokalemia; K52.9 Noninfective gastroenteritis and colitis, unspecified; Y83.8 Other surgical procedures as the cause of abnormal reaction of the patient, or of later complication, without mention of misadventure at the time of the procedure; Z90.49 Acquired absence of other specified parts of digestive tract; Z90.710 Acquired absence of both cervix and uterus; Z87.891 Personal history of nicotine dependence; Z79.82 Long term (current) use of aspirin; Z79.899 Other long term (current) drug therapy; Z68.20 Body mass index [BMI] 20.0-20.9, adult
CPT/HCPCS: 36415; 51701; 70553; 71045; 80048; 80162; 81003; 81015; 82553; 84484; 85025; 85610; 85730; 87040; 87045; 87046; 87086; 87324; 87328; 87329; 87427; 87449; 93005; 93306; J0696; J1160; J1650; J1940; J2405; J2704; J3480; J3490; J7050